=== PATIENT | male | born 1935 | race Caucasian/White ===

== ENCOUNTER 2022-09-09 13:45 | Inpatient (IN) ==
[2022-09-09 14:13] LABS: POC Calcium, Ionized 1.18 (1.16-1.32); POC Creatinine 3.3 (0.6-1.2); POC Potassium 4.9 (3.3-5.1)
--- NOTE | 2022-09-09 14:15 | Emergency Department Note ---
HPI General Chief complaint: Weakness Stated complaint: weakness Time Seen by Provider: 09/09/22 13:49 Source: patient and family Mode of arrival: wheelchair Limitations: no limitations History of Present Illness HPI Narrative: Narrative: Patient presents to the ED with his family with concerns of deterioration over the last month. Is that patient had a stroke several months ago and he was going through PT was doing much better. However on 08/15/2022 patient had a fall. He went to an outside facility for evaluation in their ED and they did a CT and x-rays of his pelvis and they were unremarkable for any acute fractures. However upon returning home patient has not ambulated and has decreased his ambulation to the point where he is no longer walking. They states that it was due to pain that he would feel in his hip every time he would try to walk. Over the last month he has had some ground-level falls where he fell to his buttocks. His last fall was yesterday. Family denies him hitting his head or have any loss of consciousness, fever, chills, extremity weakness, extremity numbness, slurred speech, facial droopiness, low back pain. Patient reports that he does have pain in his hip and in his left knee. He states his left knee is swollen. Patient denies any other alleviating or aggravating factors. Related Data Home Medications Medication Instructions Recorded Confirmed allopurinol 100 mg tablet 100 mg PO QDAY 09/27/16 04/29/22 amlodipine 10 mg tablet 10 mg PO QDAY 09/27/16 04/29/22 aspirin 81 mg tablet 81 mg PO QDAY 09/27/16 04/29/22 levothyroxine 50 mcg tablet 50 mcg PO QDAY 09/27/16 04/29/22 (Synthroid) niacin 250 mg tablet 500 mg PO QDAY 10/28/21 04/29/22 bisacodyl 10 mg rectal suppository 10 mg MA QDAY PRN 04/29/22 04/29/22 (Dulcolax (bisacodyl)) chlorthalidone 25 mg tablet 25 mg PO QDAY 04/29/22 04/29/22 clonidine HCl 0.1 mg tablet 0.1 mg PO QHS PRN 04/29/22 04/29/22 clopidogrel 75 mg tablet 75 mg PO QDAY 12/23/22 12/23/22 docusate sodium 100 mg tablet 100 mg PO QDAY 04/29/22 04/29/22 pantoprazole 40 mg tablet,delayed 40 mg PO QDAY 04/29/22 04/29/22 release polyethylene glycol 3350 17 gram 17 g PO QDAY PRN 04/29/22 04/29/22 oral powder packet (Miralax) sodium bicarbonate 650 mg tablet 650 mg PO BID 04/29/22 04/29/22 sodium zirconium cyclosilicate 10 10 g PO QDAY 04/29/22 04/29/22 gram oral powder packet terazosin 1 mg capsule 1 mg PO BID 04/29/22 04/29/22 Allergies Allergy/AdvReac Type Severity Reaction Status Date / Time NSAIDS (Non-Steroidal Allergy Unknown Unknown Verified 04/29/22 08:46 Anti-Inflamma Oobjtsn-MKY-FfQ Reductase Allergy Unknown Unknown Verified 04/29/22 08:46 Inhibitor [Usmwrgr-Srq-Fgr Reductase Inhibitor] Review of Systems ROS ROS Narrative: Narrative: All systems ED: reviewed and negative except as stated. [facility] Narrative Patient History Narrative: Narrative: Medical/Surgical/Family History All Active Problems (Updated 09/09/22 @ 15:18 by Jose Camarillo DO) Closed subcapital fracture of left femur (Acute) Hyperkalemia (Acute) Chronic kidney disease (CKD) stage G4/A1, severely decreased glomerular filtration rate (GFR) between 15-29 mL/min/1.73 square meter and albuminuria creatinine ratio less than 30 mg/g (Chronic) Metabolic acidosis (Chronic) Anemia in stage 4 chronic kidney disease (Chronic) Secondary hyperparathyroidism of renal origin (Chronic) Obesity (Chronic) Lumbar back pain (Chronic) Duodenal ulcer (Chronic) Anemia (Chronic) Erectile dysfunction (Chronic) Gout (Chronic) Neoplasm of uncertain behavior of skin (Chronic) Squamous cell skin cancer (Chronic) Dermatitis, eczematoid (Chronic) Moderate to severe aortic stenosis (Chronic) Hypertension (Chronic) Hyperlipidemia (Chronic) BPH (benign prostatic hyperplasia) (Chronic) Hypothyroidism (Chronic) Decreased urination (Chronic) Aortic stenosis (Chronic) Medical History (Updated 09/09/22 @ 15:18 by Jose Camarillo DO) Anemia Aortic stenosis BPH (benign prostatic hyperplasia) Decreased urination Dermatitis, eczematoid Duodenal ulcer Erectile dysfunction Gout Hyperlipidemia Hypertension Hypothyroidism Lumbar back pain Moderate to severe aortic stenosis Neoplasm of uncertain behavior of skin Obesity Secondary hyperparathyroidism of renal origin Squamous cell skin cancer Left forearm-excised 2010 Surgical History No pertinent past surgical history Family History Mother Stroke Father Asthma Brother Alcoholism Diabetes Sister Colon cancer Social History Smoking Status: Never smoker Alcohol Intake Frequency: a few times a month Substance Use: does not use Exam Narrative Narrative: Narrative: General Limitations: no limitations General appearance: Absent in distress Head Head: Present atraumatic and normocephalic Eye Eye: Present PERRL and EOMI ENT ENT: Present normal oropharynx and mucous membranes moist Neck Neck: Present normal inspection; Absent tenderness Respiratory Respiratory: Present normal lung sounds bilaterally; Absent respiratory distress Cardiovascular Cardiovascular: Present regular rate and normal rhythm Adbominal Abdominal: Present soft; Absent tenderness Extremities Extremities: Present normal capillary refill Expanded Lower Extremity Hip/Pelvis: Present tenderness, ecchymosis, internal rotation and shortening Upper leg: Absent tenderness Knee: Present tenderness and swelling Neurological Neurological: Present alert Psychiatric Psychiatric: Present normal affect and normal mood Skin Skin: Present warm (WNL) and intact Course Course Course Narrative: Physical exam showed that patient's left lower extremity was shortened and and rotated. CT of the pelvis was obtained with images reviewed myself which revealed a subcapital femoral fracture with some angulation. Labs are relatively unremarkable. Patient's renal function is at baseline. White cell count within normal limits. Patient was given some IV fluids. He does have some urinary retention as he had greater than 500 mL of urine. Langley catheter was placed. Patient expressed desire to have his fracture surgically corrected if possible. Case was discussed with orthopedic surgeon who recommend the patient be admitted to the hospitalist service for surgical correction of his left hip. Case was discussed with hospitalist who has agreed to admit the patient. Reevaluation(s) Reevaluation #1: Patient remains hemodynamically stable. No new complaints at this time Time: 14:51 Consultations Consultation #1: Case discussed with on-call orthopedic surgeon, Dr. Bonner, who recommends surgical correction of patient's subcapital fracture. He requested patient be admitted to the hospitalist service due to patient's comorbid conditions. He also requested patient Plavix be held Time: 15:15 Consultation #2: Case discussed with hospitalist who has agreed to admit the patient. Time: 15:40 Vital Signs Vital signs: Vital Signs Temperature 96.7 F L 09/09/22 13:46 Pulse Rate 78 09/09/22 13:46 Respiratory Rate 17 09/09/22 13:46 Blood Pressure 152/53 09/09/22 13:46 Pulse Oximetry (%) 98 09/09/22 13:46 Oxygen Delivery Method Room Air 09/09/22 13:46 Temperature 96.7 F L 09/09/22 13:46 Pulse Rate 79 09/09/22 15:25 Respiratory Rate 17 09/09/22 13:46 Blood Pressure 177/62 09/09/22 15:25 Pulse Oximetry (%) 99 09/09/22 15:25 Oxygen Delivery Method Room Air 09/09/22 13:46 MDM MDM Narrative Medical decision making narrative: Narrative: Differential Diagnosis Differential Diagnosis: Hip fracture, Medical Records Medical records reviewed: Yes I reviewed the patient's medical records. Lab Data Lab results reviewed: Yes I reviewed the patient's lab results. 09/09/22 14:10 Labs: Lab Results 09/09/22 09/09/22 Range/Units 14:08 14:10 WBC 7.5 (4.5-11.0) K/mcL RBC 3.61 L (4.63-6.08) M/mcL Hgb 10.9 L (13.7-17.5) g/dL Hct 34.9 L (40.1-51.0) % POC Hct 32.0 L (41-55) MCV 96.7 (80.0-100.0) fL MCH 30.2 (26.0-34.0) pg MCHC 31.2 (31.0-36.0) g/dL RDW 14.5 (11.5-14.5) % Plt Count 281 (140-440) K/mcL MPV 9.6 (8.8-12.5) fL Immature Gran % (Auto) 4.7 H (0.0-0.5) % Neut % (Auto) 72.0 (38.0-78.0) % Lymph % (Auto) 11.9 L (15.5-49.0) % [place] % (Auto) 9.1 (1.0-12.0) % Eos % (Auto) 1.5 (0.0-7.0) % Baso % (Auto) 0.8 (0.0-2.0) % Lymph # (Auto) 0.89 L (1.50-4.80) K/mcL [place] # (Auto) 0.68 (0.10-0.90) K/mcL Eos # (Auto) 0.11 (0.00-0.70) K/mcL Baso # (Auto) 0.06 (0.00-0.30) K/mcL Immature Gran # 0.35 H (0.00-0.05) K/mcl Absolute Neutrophils 5.36 (1.80-8.00) K/mcL POC Sodium 143 (133-145) POC Potassium 4.9 (3.3-5.1) POC Chloride 114 H (96-108) POC Total CO2 18.0 L (22-30) POC BUN 52 H (6-20) POC Creatinine 3.3 H (0.6-1.2) POC Glucose 129 H (70-105) POC WB Ioniz Calcium 1.18 (1.16-1.32) Core Measures AMI Core Measures Followed: Yes Discharge Plan Patient/Caregiver Discharge Instructions Pt seen by [employer]/PA only: No Clinical Impression: Closed subcapital fracture of left femur Qualifiers: Encounter type: initial encounter Qualified Code(s): S72.012A - Unspecified intracapsular fracture of left femur, initial encounter for closed fracture Patient Disposition: Xfer As Outpt/Obs ([facility]) Condition: Fair Follow up with: Ludwin Maldonado MD [Primary Care Provider] - Prescriptions: No Action allopurinol 100 mg tablet 100 mg PO QDAY levothyroxine [Synthroid] 50 mcg tablet 50 mcg PO QDAY amlodipine 10 mg tablet 10 mg PO QDAY aspirin 81 mg tablet 81 mg PO QDAY niacin 250 mg tablet 500 mg PO QDAY terazosin 1 mg capsule 1 mg PO BID sodium bicarbonate 650 mg tablet 650 mg PO BID clonidine HCl 0.1 mg tablet 0.1 mg PO QHS PRN docusate sodium 100 mg tablet 100 mg PO QDAY sodium zirconium cyclosilicate 10 gram powder in packet 10 g PO QDAY chlorthalidone 25 mg tablet 25 mg PO QDAY pantoprazole 40 mg tablet,delayed release (DR/EC) 40 mg PO QDAY clopidogrel 75 mg tablet 75 mg PO QDAY polyethylene glycol 3350 [Miralax] 17 gram powder in packet 17 g PO QDAY PRN bisacodyl [Dulcolax (bisacodyl)] 10 mg suppository 10 mg MA QDAY PRN
[2022-09-09] MEDS ORDERED: 0.9 % SODIUM CHLORIDE 1,000 ML IV ONE (14:18)
[2022-09-09] MEDS ORDERED: 0.9 % SODIUM CHLORIDE 500 ML IV ONE (14:18)
[2022-09-09] MEDS ORDERED: LIDOCAINE 2% URO-JET 10 ML JEL.PF.APP UR ONE (14:22)
--- NOTE | 2022-09-09 15:08 | Cat Scan Report ---
History: Fell, left hip pain TECHNIQUE: The pelvis was imaged without contrast in axial plane at 2.5 mm intervals. Sagittal and coronal reformats were created. The radiation exposure was limited using dose reduction technology. FINDINGS: There is a subacute subcapital fracture of the left femoral neck. There is angulation and impaction. The shaft is retracted proximally. The femoral head is rotated within the acetabulum but is intact. No callus has formed. There is mild resorption of bone along the superior aspect of the fracture line. No pelvic fracture is present. The right hip is normal. Bowel pattern is normal. There is a Langley catheter in the bladder. Severe atherosclerotic disease is present in the distal aorta. 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 No retroperitoneal hemorrhage is present. Comparison with the prior CT done on 08/15/22 shows the fracture of the hip has developed since the time of the prior CT. The hip was normal at that time. IMPRESSION: Moderate deformity due to a subcapital fracture of the left femoral neck Dr. Camarillo was called with the report Interpreted and Authenticated by: Albert Canales 09/09/22
[2022-09-09 15:24] LABS: Basophils # (Auto) 0.06 K/mcL (0.00-0.30); Basophils % (Auto) 0.8 % (0.0-2.0); Eosinophils # (Auto) 0.11 K/mcL (0.00-0.70); Eosinophils % (Auto) 1.5 % (0.0-7.0); Hematocrit 34.9 % (40.1-51.0); Hemoglobin 10.9 g/dL (13.7-17.5); Lymphocytes # (Auto) 0.89 K/mcL (1.50-4.80); Lymphocytes % (Auto) 11.9 % (15.5-49.0); Mean Cell Volume 96.7 fL (80.0-100.0); Mean Corpuscular HGB Conc 31.2 g/dL (31.0-36.0); Mean Platelet Volume 9.6 fL (8.8-12.5); Monocytes # (Auto) 0.68 K/mcL (0.10-0.90); Monocytes % (Auto) 9.1 % (1.0-12.0); Platelet Count 281 K/mcL (140-440); RBC 3.61 M/mcL (4.63-6.08); Red Cell Distribution Width 14.5 % (11.5-14.5); WBC 7.5 K/mcL (4.5-11.0)
--- NOTE | 2022-09-09 16:30 | Internal Med History&Physical ---
HPI History of Present Illness Patient information: Note initiated : 09/09/22 at 4:28 pm Service Date, if different from initiated Date: [] Patient: Mina Schmidt 87 y/o M admitted on for weakness. Chief Complaint: [] History of present illness: Mr. Schmidt is a 87 year old male with a history of hypertension, hyperlipidemia, aortic stenosis status post TAVR, chronic kidney disease stage IV, stroke in 2021 and recurrent falls who presented to the emergency department with worsening left hip pain. History was taken from the patient and his daughter and grandson in the ED. They reported that the patient had a fall on [place] and was taken to an outside emergency department. The patient reportedly had an x-ray and CT scan of his hip and that did not show any acute fractures. They reported that the patient had elevated potassium therefore was admitted for short period of time before discharge. The patient continued to have left hip pain and multiple falls. They reported that he was again taken to the emergency department and had additional imaging which reportedly did not show any acute fractures. The patient was then brought to the [facility] for further evaluation and was found to have a left femoral neck fracture. Orthopedic surgery evaluated the CT scan and felt that the patient would benefit from surgical correction. The patient would like to proceed with surgical correction. Hospital medicine was consulted for admission. We did discuss goals of care as well as CODE STATUS prior to admission. The patient says that he wants to walk again, hopefully return home at some point. He says that he wishes his CODE STATUS to be DNR. We discussed the possibility of complications from surgery including worsening of his renal function, pain, confusion, urinary retention and the risk of if the hospitalization does not go well. The patient and family understand the risks and wished to proceed with surgery. Review of systems Constitutional: no fever, fatigue, or weight loss Eyes: no vision changes or pain Cardiovascular: no chest pain, no palpitations Respiratory: no cough or dyspnea Gastrointestinal: no abdominal pain, no nausea, vomiting, or diarrhea Genitourinary: no dysuria or difficulty voiding Musculoskeletal: Left hip and left knee pain. Integumentary: no skin lesion or wound Neurological: no focal weakness or numbness Psychiatric: no anxiety or depression Physical exam Head: Atraumatic, normal inspection. Eyes: normal appearance, no scleral icterus. Neck: full ROM Respiratory: no respiratory distress. Cardiovascular: normal rate and rhythm, S1, S2, systolic murmur present. GI/Abdominal: soft, nontender, no guarding. : Indwelling Up catheter Extremities: Left hip tenderness to palpation. Neurological: CN II-XII intact, intact motor, intact sensation. Psychiatric: normal mood. Skin: warm, normal color PFSH PFSH All Active Problems (Updated 09/09/22 @ 15:18 by Jose Camarillo DO) Closed subcapital fracture of left femur (Acute) Hyperkalemia (Acute) Chronic kidney disease (CKD) stage G4/A1, severely decreased glomerular filtration rate (GFR) between 15-29 mL/min/1.73 square meter and albuminuria creatinine ratio less than 30 mg/g (Chronic) Metabolic acidosis (Chronic) Anemia in stage 4 chronic kidney disease (Chronic) Secondary hyperparathyroidism of renal origin (Chronic) Obesity (Chronic) Lumbar back pain (Chronic) Duodenal ulcer (Chronic) Anemia (Chronic) Erectile dysfunction (Chronic) Gout (Chronic) Neoplasm of uncertain behavior of skin (Chronic) Squamous cell skin cancer (Chronic) Dermatitis, eczematoid (Chronic) Moderate to severe aortic stenosis (Chronic) Hypertension (Chronic) Hyperlipidemia (Chronic) BPH (benign prostatic hyperplasia) (Chronic) Hypothyroidism (Chronic) Decreased urination (Chronic) Aortic stenosis (Chronic) Medical History (Updated 09/09/22 @ 15:18 by Jose Camarillo DO) Anemia Aortic stenosis BPH (benign prostatic hyperplasia) Decreased urination Dermatitis, eczematoid Duodenal ulcer Erectile dysfunction Gout Hyperlipidemia Hypertension Hypothyroidism Lumbar back pain Moderate to severe aortic stenosis Neoplasm of uncertain behavior of skin Obesity Secondary hyperparathyroidism of renal origin Squamous cell skin cancer Left forearm-excised 2010 Surgical History No pertinent past surgical history Family History Mother Stroke Father Asthma Brother Alcoholism Diabetes Sister Colon cancer Social History (Updated 10/21/19 @ 13:43 by Prasad Harris MD) marital status: occupational status: retired physical activity: walking and other details: Active frequency: daily smoking status: Never smoker alcohol intake frequency: a few times a month substance use type: does not use seatbelt use: always MEDS/ALLERGIES Home Medications and Allergies Home Medications Medication Instructions Recorded Confirmed Type allopurinol 100 mg tablet 100 mg PO QDAY 09/27/16 04/29/22 History amlodipine 10 mg tablet 10 mg PO QDAY 09/27/16 04/29/22 History aspirin 81 mg tablet 81 mg PO QDAY 09/27/16 04/29/22 History levothyroxine 50 mcg tablet 50 mcg PO QDAY 09/27/16 04/29/22 History (Synthroid) niacin 250 mg tablet 500 mg PO QDAY 10/28/21 04/29/22 History bisacodyl 10 mg rectal suppository [address] QDAY PRN 04/29/22 04/29/22 History (Dulcolax (bisacodyl)) chlorthalidone 25 mg tablet 25 mg PO QDAY 04/29/22 04/29/22 History clonidine HCl 0.1 mg tablet 0.1 mg PO QHS PRN 04/29/22 04/29/22 History clopidogrel 75 mg tablet 75 mg PO QDAY 04/29/22 04/29/22 History docusate sodium 100 mg tablet 100 mg PO QDAY 04/29/22 04/29/22 History pantoprazole 40 mg tablet,delayed 40 mg PO QDAY 04/29/22 04/29/22 History release polyethylene glycol 3350 17 gram 17 g PO QDAY PRN 04/29/22 04/29/22 History oral powder packet (Miralax) sodium bicarbonate 650 mg tablet 650 mg PO BID 04/29/22 04/29/22 History sodium zirconium cyclosilicate 10 10 g PO QDAY 04/29/22 04/29/22 History gram oral powder packet terazosin 1 mg capsule 1 mg PO BID 04/29/22 04/29/22 History Allergies Allergy/AdvReac Type Severity Reaction Status Date / Time NSAIDS (Non-Steroidal Allergy Unknown Unknown Verified 04/29/22 08:46 Anti-Inflamma Noctmzf-WRC-SoK Reductase Allergy Unknown Unknown Verified 04/29/22 08:46 Inhibitor [Eblbzkx-Ppz-Btz Reductase Inhibitor] EXAM Constitutional Vitals: Temp Pulse Resp BP Pulse Ox O2 Del Method 96.7 F L 80 17 172/64 98 Room Air 09/09/22 13:46 09/09/22 15:49 09/09/22 13:46 09/09/22 15:49 09/09/22 15:49 09/09/22 13:46 DATA Data Completed and Pending Labs: Labs from last 24 hours 09/09/22 09/09/22 14:10 14:08 WBC 7.5 RBC 3.61 L Hgb 10.9 L Hct 34.9 L POC Hct 32.0 L MCV 96.7 MCH 30.2 MCHC 31.2 RDW 14.5 Plt Count 281 MPV 9.6 Immature Gran % (Auto) 4.7 H Neut % (Auto) 72.0 Lymph % (Auto) 11.9 L [place] % (Auto) 9.1 Eos % (Auto) 1.5 Baso % (Auto) 0.8 Lymph # (Auto) 0.89 L [place] # (Auto) 0.68 Eos # (Auto) 0.11 Baso # (Auto) 0.06 Immature Gran # 0.35 H Absolute Neutrophils 5.36 POC Sodium 143 POC Potassium 4.9 POC Chloride 114 H POC Total CO2 18.0 L POC BUN 52 H POC Creatinine 3.3 H POC Glucose 129 H POC WB Ioniz Calcium 1.18 A/P Narrative A/P Narrative: Assessment: 87-year-old male with a history of hypertension, hyperlipidemia, aortic stenosis status post TAVR, chronic kidney disease stage IV, stroke in 2021, gout, hypothyroidism admitted for a left femoral neck fracture. #Left femoral neck fracture #CKD stage IV complicated by metabolic acidosis #Urinary retention requiring up catheter #Recurrent falls #Hypertension #Hyperlipidemia #History of stroke 2021 #Aortic stenosis status post TAVR Plan: -Schedule Ofirmev IV Q8 hrs, low dose Dilaudid IV prn. -Monitor renal function, hemoglobin after surgery. -Orthopedic surgery consult. -Home medication reconciliation. -Regular diet, n.p.o. after midnight. -PT consult. -Delirium bundle. -DVT prophylaxis: Per orthopedic surgery preference. -CODE STATUS: DNR/DNI Time Spent With Patient Time: Total time spent is greater than 50% in coordination of care (as documented) at patient's floor/unit and/or counseling patient:
[2022-09-09] MEDS ORDERED: HYDROmorphone 0.5 MG/0.5 ML SYRINGE IV PRN (18:48)
[2022-09-09] MEDS ORDERED: BISACODYL 10 MG SUPP.RECT PR PRN (18:48)
[2022-09-09] MEDS ORDERED: ONDANSETRON 4 MG/2 ML VIAL IV PRN (18:48)
[2022-09-09] MEDS: SENNOSIDES 1 TABLET PO SCH (20:06)
[2022-09-09] MEDS: 0.9 % SODIUM CHLORIDE 10 ML SYRINGE IV SCH (20:07)
[2022-09-09] MEDS: ACETAMINOPHEN 1,000 MG/100 ML BAG IV SCH (20:08)
--- NOTE | 2022-09-09 20:24 | Consultation ---
DATE OF CONSULTATION: 09/09/2022 HISTORY OF PRESENT ILLNESS: The patient being an elderly 87-year-old male has significant complaint of hip pain. This started I guess a week ago or two. The patient was seen in the hospital image without any sign of a fracture. He was unable to bear weight and has worsened over the last week. He returns today with further imaging x-rays. The CT scan demonstrates a femoral neck fracture, displaced. He is unable to bear weight and with his new changes in his symptoms I have been consulted to see if this is surgical. Patient is on blood thinners or Plavix secondary to aortic stenosis. He was initially seen in the emergency room after a fall on 08/15/2022 more that is when his fall was. MEDICATIONS: His other medications include: 1. Allopurinol. 2. Amlodipine. 3. Aspirin. 4. Levothyroxine. 5. Niacin. 6. He is also on terazosin 1 gram. 7. Stool softener, docusate sodium. 8. Clonidine. 9. He has Dulcolax. 10. Plavix 75 mg tablet every day. ALLERGIES: LISTED ANTI-INFLAMMATORIES, STATINS. REVIEW OF SYSTEMS: Negative for chest pain, shortness of breath or loss of consciousness. PAST SOCIAL HISTORY AND FAMILY HISTORY: He is living at a facility with assistance. Does ambulate. Has not been able to ambulate recently, but is an ambulatory person. Other health problems in the past is kidney disease, metabolic acidosis, anemia, obesity, lumbar back pain, which is chronic, anemia, erectile dysfunction, gout, dermatitis, hypertension, hyperlipidemia, hypothyroidism, chronic decrease in urination, aortic stenosis. He also had squamous cell skin cancer, left forearm. SURGICAL HISTORY: I see no extremity surgery. SOCIAL HISTORY: He has never smoked. He drinks occasionally and is not a substance abuser. PHYSICAL EXAMINATION: GENERAL: Very pleasant elderly male. General appearance without distress without shortness of breath, but in pain. HEENT: Head normocephalic, atraumatic. Eyes: Extraocular movements intact. NECK: Supple, nontender. RESPIRATORY: Normal lung sounds bilaterally. CARDIOVASCULAR: Regular rate. ABDOMEN: Obese. EXTREMITIES: Unable to move the hip internally or externally. Extremity with normal capillary refill. He does have shortening on the left lower extremity when compared to the right. He is unable to stand and bear weight and he does move his toes without difficulty. The patient's CT scan that I have reviewed today does demonstrate obvious displacement of the femoral neck fracture. DIAGNOSIS: Surgical neck fracture, displaced at this point, longstanding fracture. I have recommended a hemiarthroplasty given the length of its displacement and symptoms. This would be a cementless component as his bone quality is excellent. Risks and benefits were explained. He agrees to have surgery. We will stop his Plavix today, make him n.p.o., surgery tomorrow if the bleeding time is reasonable. RBH:chelly Job ID: [id number] Doc ID: [id number] Stefano Painter MD
[2022-09-10] MEDS: ACETAMINOPHEN 1,000 MG/100 ML BAG IV SCH (04:12)
[2022-09-10] MEDS: 0.9 % SODIUM CHLORIDE 10 ML SYRINGE IV SCH ×6 (04:13→21:16)
[2022-09-10 06:11] LABS: ALT/SGPT 10 U/L (<40); AST/SGOT 12 U/L (<40); Albumin 3.4 gm/dL (3.2-5.2); Albumin/Globulin Ratio 1.4 (1.0-2.3); Alkaline Phosphatase 81 U/L (39-117); Bilirubin,Direct < 0.2 mg/dL (0-0.3); Bilirubin,Total 0.2 mg/dL (0.1-1.0); Blood Urea Nitrogen 53 mg/dL (8-23); Calcium 8.9 mg/dL (8.6-10.4); Carbon Dioxide 17 mmol/L (22-30); Chloride 113 mmol/L (96-108); Globulin 2.5 gm/dL (2.2-3.7); Glomerular Filtration Rate 24; Glucose 106 mg/dL (70-105); Lactate Dehydrogenase 251 U/L (135-225); Phosphorous 4.1 mg/dL (2.5-4.5); Triglycerides 112 mg/dL (<150); Uric Acid 5.6 mg/dL (2.5-8.0)
[2022-09-10] MEDS ORDERED: IPRATROPIUM/ALBUTEROL 3 ML AMPUL.NEB NEB PRN ×2 (07:00→08:45)
[2022-09-10] MEDS ORDERED: SCOPOLAMINE 1 PATCH PATCH TOPICAL PRN (07:00)
[2022-09-10] MEDS ORDERED: ceFAZolin 2 GM in DEXTROSE 5% IN WATER 50 ML IV SCH (07:45)
[2022-09-10] MEDS: SENNOSIDES 1 TABLET PO SCH ×2 (07:50→21:14)
[2022-09-10] MEDS ORDERED: POLYETHYLENE GLYCOL 3350 17 GM PACKET PO PRN ×2 (07:53→09:18)
[2022-09-10] MEDS ORDERED: ONDANSETRON 4 MG/2 ML VIAL ONE (08:10)
[2022-09-10] MEDS ORDERED: KETAMINE 50 MG/ML Syringe (ANEST) IV ONE (08:10)
[2022-09-10] MEDS ORDERED: MAGNESIUM SULFATE 2 GM/50 ML BAG IV ONE (08:10)
[2022-09-10] MEDS ORDERED: DEXAMETHASONE 10 MG/ML VIAL ONE (08:10)
[2022-09-10] MEDS ORDERED: LIDOCAINE HCL/PF 100 MG/5 ML SYRINGE IV ONE (08:10)
[2022-09-10] MEDS ORDERED: ROPIVACAINE HCL/PF 20 ML VIAL IJ ONE (08:10)
[2022-09-10] MEDS ORDERED: PROPOFOL 200 MG/20 ML VIAL IV ONE (08:10)
[2022-09-10] MEDS ORDERED: MEPERIDINE 25 MG/ML VIAL IV PRN (08:45)
[2022-09-10] MEDS ORDERED: PROMETHAZINE 25 MG/ML VIAL IV PRN (08:45)
[2022-09-10] MEDS ORDERED: LACTATED RINGERS 1,000 ML IV SCH (08:45)
[2022-09-10] MEDS ORDERED: NALOXONE HCL 0.4 MG/ML VIAL IV PRN (08:45)
[2022-09-10] MEDS ORDERED: METHOCARBAMOL 1,000 MG/10 ML VIAL IV PRN (08:45)
[2022-09-10] MEDS ORDERED: LACTATED RINGERS 250 ML IV PRN (08:45)
[2022-09-10] MEDS ORDERED: ONDANSETRON 4 MG/2 ML VIAL IV PRN ×3 (08:45→09:18)
[2022-09-10] MEDS ORDERED: fentaNYL 100 MCG/2 ML VIAL IV PRN (08:45)
--- NOTE | 2022-09-10 09:15 | Brief Operative Note ---
Brief Operative Note Date of procedure: 09/10/22 Pre-op diagnosis: left hip femoral neck fx Post-op diagnosis: same Procedure: Left hip hemiarthroplasty Grafts/Implants: Yes Anesthesia: GETA Findings: severe fx Complications: none Surgeon: Stefano Painter Metal Sorter: Daniel Baum Estimated blood loss (cc): 50 Tourniquet Time (Minutes): 0 Specimens Removed/Pathology: none sent Condition: stable Disposition: PACU
--- NOTE | 2022-09-10 09:17 | Discharge Plan ---
Discharge Instructions - [facility] Patient Instructions Total Hip Protocol: Follow activity instructions as provided by Physical Therapy. Dressing Care: May shower in 3 days Discharge Plan Patient/Caregiver Discharge Instructions Activity: ambulate only with your walker and as per physical therapy Diet: Regular Diet Prescriptions: New docusate sodium 100 mg capsule 100 mg PO BID Qty: 60 0RF hydrocodone-acetaminophen 5-325 mg tablet 1 - 2 tab PO Q4H PRN (Reason: Pain) Qty: 30 0RF No Action allopurinol 100 mg tablet 100 mg PO QDAY levothyroxine [Synthroid] 50 mcg tablet 50 mcg PO QDAY amlodipine 10 mg tablet 10 mg PO QDAY aspirin 81 mg tablet 81 mg PO QDAY niacin 250 mg tablet 500 mg PO QDAY terazosin 1 mg capsule 1 mg PO BID sodium bicarbonate 650 mg tablet 650 mg PO BID clonidine HCl 0.1 mg tablet 0.1 mg PO QHS PRN (Reason: antihypertensive) docusate sodium 100 mg tablet 100 mg PO QDAY sodium zirconium cyclosilicate 10 gram powder in packet 10 g PO QDAY chlorthalidone 25 mg tablet 25 mg PO QDAY pantoprazole 40 mg tablet,delayed release (DR/EC) 40 mg PO QDAY clopidogrel 75 mg tablet 75 mg PO QDAY polyethylene glycol 3350 [Miralax] 17 gram powder in packet 17 g PO QDAY PRN (Reason: Constipation) bisacodyl [Dulcolax (bisacodyl)] 10 mg suppository 10 mg MO QDAY PRN (Reason: Constipation) Other Ambulatory Orders: Physical Therapy DC - [facility] (Routine) Location: None Selected Ordered By: Daniel Baum Toilet Riser Discharge Order (ONCE) Location: None Selected Ordered By: Daniel Baum Walker (ONCE) Location: None Selected Ordered By: Daniel Baum Follow Up Plan Follow up with: Ludwin Maldonado MD [Primary Care Provider] - Daniel Baum PAJoeC [Physician Wharf Worker] - Patient Disposition: Xfer SNF Prognosis: Fair Rehab Potential: Fair I certify that the patient requires SNF services: Yes Overall status at discharge: patient is not back to baseline Discharge Orders: Discharge Order (Routine); Ordered 09/12/22 Ordered By: Daniel Baum
[2022-09-10] MEDS ORDERED: HYDROmorphone 1 MG/ML SYRINGE IV PRN (09:18)
[2022-09-10] MEDS ORDERED: HYDROCODONE/APAP 7.5/325MG TABLET PO PRN (09:18)
[2022-09-10] MEDS ORDERED: TRANEXAMIC ACID 1,000 MG/10 ML VIAL IV SCH (09:18)
[2022-09-10] MEDS ORDERED: BENZOCAINE/MENTHOL 1 LOZENGE PO PRN (09:18)
[2022-09-10] MEDS ORDERED: FLEETS ADULT ENEMA PR PRN (09:18)
[2022-09-10] MEDS ORDERED: MAGNESIUM HYDROXIDE 30 ML ORAL.SUSP PO PRN (09:18)
[2022-09-10] MEDS ORDERED: BISACODYL 10 MG SUPP.RECT PR PRN (09:18)
[2022-09-10] MEDS ORDERED: ACETAMINOPHEN 325 MG TABLET PO PRN (09:18)
[2022-09-10] MEDS ORDERED: 0.45 % SODIUM CHLORIDE 1,000 ML IV SCH (09:30)
[2022-09-10] MEDS ORDERED: hydrALAZINE 20 MG/ML VIAL IV ONE (09:45)
[2022-09-10] MEDS: PANTOPRAZOLE 40 MG TABLET PO SCH (11:42)
[2022-09-10] MEDS: amLODIPine 10 MG TABLET PO SCH (11:42)
[2022-09-10] MEDS: TERAZOSIN 1 MG CAPSULE PO SCH ×2 (11:42→21:14)
[2022-09-10] MEDS: LEVOTHYROXINE 50 MCG TABLET PO SCH (11:42)
[2022-09-10] MEDS: SODIUM BICARBONATE 650 MG TABLET PO SCH ×2 (11:43→21:14)
[2022-09-10] MEDS: ALLOPURINOL 100 MG TABLET PO SCH (11:43)
[2022-09-10] MEDS: SODIUM ZIRCONIUM CYCLOSILICATE PO SCH (11:43)
--- NOTE | 2022-09-10 15:17 | XRay Report ---
HISTORY: Postop repair of left hip fracture FINDINGS: There is a well-positioned left hip prosthesis. Femoral head and neck have been replaced. No new fracture is developed. There is underlying osteopenia. IMPRESSION: Well-positioned left hip prosthesis Interpreted and Authenticated by: Albert Canales 09/10/22
--- NOTE | 2022-09-10 17:07 | Internal Med Progress Note ---
SUBJECTIVE Subjective Patient information: Note initiated : 09/10/22 at 5:04 pm Service Date, if different from initiated Date: [] Patient: Mina Schmidt 87 y/o M admitted on 09/09/22 for weakness. Chief Complaint: [] Interval history: Mr. Schmidt is a 87 year old male with a history of hypertension, hyperlipidemia, aortic stenosis status post TAVR, chronic kidney disease stage IV, stroke in 2021 and recurrent falls who presented to the emergency department with worsening left hip pain. History was taken from the patient and his daughter and grandson in the ED. They reported that the patient had a fall on [place] and was taken to an outside emergency department. The patient reportedly had an x-ray and CT scan of his hip and that did not show any acute fractures. They reported that the patient had elevated potassium therefore was admitted for short period of time before discharge. The patient continued to have left hip pain and multiple falls. They reported that he was again taken to the emergency department and had additional imaging which reportedly did not show any acute fractures. The patient was then brought to the [facility] for further evaluation and was found to have a left femoral neck fracture. Orthopedic surgery evaluated the CT scan and felt that the patient would benefit from surgical correction. The patient would like to proceed with surgical correction. Hospital medicine was consulted for admission. We did discuss goals of care as well as CODE STATUS prior to admission. The patient says that he wants to walk again, hopefully return home at some point. He says that he wishes his CODE STATUS to be DNR. We discussed the possibility of complications from surgery including worsening of his renal function, pain, confusion, urinary retention and the risk of if the hospitalization does not go well. The patient and family understand the risks and wished to proceed with surgery. 5/6 No significant events overnight, the patient underwent a left hemiarthroplasty today. Pain control satisfactory, continue scheduled IV Tylenol for now and minimize opioids. Continues with indwelling Up catheter, likely attempt removal tomorrow. PT consulted. Physical exam Head: Atraumatic, normal inspection. Eyes: normal appearance, no scleral icterus. Neck: full ROM Respiratory: no respiratory distress. Cardiovascular: normal rate and rhythm, S1, S2 GI/Abdominal: soft, nontender, no guarding. : Indwelling Up catheter Extremities: Left hip surgical incision covered with clean bandage. Neurological: CN II-XII intact, intact motor, intact sensation. Psychiatric: normal mood. Skin: warm, normal color Constitutional Vitals: Vital Signs Temp Pulse Resp BP Pulse Ox O2 Del Method O2 Flow Rate 97.7 F 84 16 154/56 97 Room Air 0 09/10/22 10:16 09/10/22 14:00 09/10/22 12:00 09/10/22 14:00 09/10/22 14:00 09/10/22 14:00 09/10/22 10:17 Period Temp Pulse Resp BP Sys/Butterfield Pulse Ox O2 Del Method O2 Flow Rate Last 24 Hr 96.7 F-98.2 F 63-84 10-18 100-204/39-78 95-100 Oxymask-Room Air 0-6 Intake and Output 09/10/22 09/10/22 09/10/22 03:59 11:59 19:59 Intake Total 580 1120 Output Total 1150 Balance 580 -30 Weight 86.183 kg Intake & Output: Intake & Output 09/10/22 09/10/22 09/10/22 03:59 11:59 19:59 Intake Total 580 1120 Output Total 1150 Balance 580 -30 Weight 86.183 kg Intake: IV 100 170 Lactated Ringers 1,000 ml @ 20 20 mls/hr IV .Q24H [facility] Rx#: [id number] Ancef 2 gm In Dextrose 5% in 50 Water 50 ml @ 100 mls/hr IV PREOP [facility] Rx#:[id number] Oral 480 IV - Manual Only 950 Output: Urine Catheter Amount 1100 Estimated Blood Loss 50 Other: Meal egg salad sandwich Percent of Meal Consumed 100% Feeding Ability Independent Urine Appearance Clear Urine Color Yellow Urine Odor Normal OBJ DATA Labs 09/09/22 14:10 09/10/22 04:55 Labs: Abnormal Lab Results 09/10/22 09/09/22 09/09/22 04:55 14:10 14:08 RBC 3.61 L Hgb 10.9 L Hct 34.9 L POC Hct 32.0 L Immature Gran % (Auto) 4.7 H Lymph % (Auto) 11.9 L Lymph # (Auto) 0.89 L Immature Gran # 0.35 H POC Chloride 114 H Chloride 113 H Carbon Dioxide 17 L POC Total CO2 18.0 L POC BUN 52 H BUN 53 H Creatinine 2.3 H POC Creatinine 3.3 H Glucose 106 H POC Glucose 129 H Lactate Dehydrogenase 251 H Meds: Medications Acetaminophen (Acetaminophen 500 Mg Tablet) 1,000 mg PO Q8H [facility]; Protocol Allopurinol (Allopurinol 100 Mg Tablet) 100 mg PO QDAY [facility] Last Admin: 09/10/22 11:43 Dose: Not Given Amlodipine Besylate (Amlodipine 10 Mg Tablet) 10 mg PO QDAY [facility] Last Admin: 09/10/22 11:42 Dose: Not Given Aspirin (Aspirin 81 Mg Tab.Chew) 81 mg CHEWED BID [facility] Bisacodyl (Bisacodyl 10 Mg Supp.Rect) 10 mg WV Q2-3DAYS PRN PRN Reason: Constipation Cefazolin Sodium (Cefazolin 1 Gm Vial) 2 gm IV Q8H [facility]; Protocol Stop: 09/11/22 00:01 Docusate Sodium (Docusate Sodium 100 Mg Capsule) 100 mg PO BID [facility] Hydromorphone HCl (Hydromorphone 1 Mg/Ml Syringe) 0.2 mg IV Q2HP PRN; Protocol PRN Reason: Per Pain Protocol Sodium Chloride (Sodium Chloride 0.45%) 1,000 mls @ 100 mls/hr IV .Q10H [facility] Last Admin: 09/10/22 11:38 Dose: 100 mls/hr Levothyroxine Sodium (Levothyroxine 50 Mcg Tablet) 50 mcg PO ACB [facility] Last Admin: 09/10/22 11:42 Dose: Not Given Magnesium Hydroxide (Magnesium Hydroxide 30 Ml Oral.Susp) 30 ml PO BIDP PRN PRN Reason: Constipation Melatonin (Melatonin 3 Mg Tablet) 3 mg PO HSP PRN PRN Reason: Insomnia Ondansetron HCl (Ondansetron 4 Mg/2 Ml Vial) 4 mg IV Q4HP PRN; Protocol PRN Reason: Nausea And Vomiting Oxycodone HCl (Oxycodone Ir 5 Mg Tablet) 5 mg PO Q6HP PRN; Protocol PRN Reason: Per Pain Protocol Pantoprazole Sodium (Pantoprazole 40 Mg Tablet) 40 mg PO ACB [facility] Last Admin: 09/10/22 11:42 Dose: Not Given Niacin 250 Mg Tablet 1 dose PO DAILY [facility] Last Admin: 09/10/22 11:43 Dose: Not Given Sodium Zirconium Cyclosilicate 10 Gram Powder In Packet 1 dose PO DAILY [facility] Last Admin: 09/10/22 11:43 Dose: Not Given Polyethylene Glycol (Polyethylene Glycol 3350 17 Gm Packet) 17 gm PO DAILYP PRN PRN Reason: Constipation Senna (Sennosides 1 Tablet) 2 tab PO BID [facility] Last Admin: 09/10/22 07:50 Dose: Not Given Sodium Bicarbonate (Sodium Bicarbonate 650 Mg Tablet) 650 mg PO BID [facility] Last Admin: 09/10/22 11:43 Dose: Not Given Sodium Biphosphate/Sodium Phosphate (Fleets Adult Enema) 1 dose WV Q3-4DAYS PRN PRN Reason: Constipation Sodium Chloride (0.9 % Sodium Chloride 10 Ml Syringe) 10 ml IV Q8 [facility] Last Admin: 09/10/22 05:47 Dose: 10 ml Sodium Chloride (0.9 % Sodium Chloride 10 Ml Syringe) 10 ml IV Q8 [facility] Terazosin HCl (Terazosin 1 Mg Capsule) 1 mg PO BID [facility] Last Admin: 09/10/22 11:42 Dose: Not Given Throat Lozenges (Benzocaine/Menthol 1 Lozenge) 1 lozenge PO PRN PRN PRN Reason: Sore Throat A/P Narrative A/P Narrative: Assessment: 87-year-old male with a history of hypertension, hyperlipidemia, aortic stenosis status post TAVR, chronic kidney disease stage IV, stroke in 2021, gout, hypothyroidism admitted for a left femoral neck fracture. #Left femoral neck fracture status post ORIF 09/10/2022 #CKD stage IV complicated by metabolic acidosis, stable #Urinary retention requiring up catheter #Recurrent falls #Hypertension #Hyperlipidemia #History of stroke 2021 #Aortic stenosis status post TAVR Plan: -Schedule Ofirmev IV Q8 hrs, oxycodone as needed, low dose Dilaudid IV prn. -Monitor renal function, hemoglobin after surgery. -Discontinue IV fluid as patient tolerating oral intake. -Attempt Up catheter removal and trial of voiding tomorrow. -Holding home Plavix for now. -Orthopedic surgery following. -Continue home allopurinol, Norvasc, levothyroxine, Protonix, sodium bicarbonate, terazosin, sodium zirconium if able to obtain from home medications as this is not formulary. -Regular diet. -PT consult. -Delirium bundle. -DVT prophylaxis: Aspirin 81 mg twice daily. -CODE STATUS: DNR/DNI -Disposition: Currently inpatient [facility], anticipate low intensity rehab at SNF when discharged. Time Spent With Patient Time: Total time spent is greater than 50% in coordination of care (as documented) at patient's floor/unit and/or counseling patient: QUALITY Stroke Symptom Onset Unknown: Yes VTE Deep Vein Thrombosis/Pulmonary Embolism Present on Admission: No
[2022-09-10] MEDS: oxyCODONE IR 5 MG TABLET PO PRN (17:14)
[2022-09-10] MEDS: ceFAZolin 1 GM VIAL IV SCH ×2 (17:15→23:22)
[2022-09-10] MEDS: ACETAMINOPHEN 500 MG TABLET PO SCH ×2 (17:18→21:18)
[2022-09-10] MEDS ORDERED: TEMAZEPAM 15 MG CAPSULE PO PRN (21:00)
[2022-09-10] MEDS ORDERED: SENNOSIDES 1 TABLET PO SCH (21:00)
[2022-09-10] MEDS: HYDROmorphone 1 MG/ML SYRINGE IV PRN (21:13)
[2022-09-10] MEDS: MELATONIN 3 MG TABLET PO PRN (21:14)
[2022-09-10] MEDS: ASPIRIN 81 MG TAB.CHEW CHEWED SCH (21:14)
[2022-09-10] MEDS: DOCUSATE SODIUM 100 MG CAPSULE PO SCH (21:14)
[2022-09-11] MEDS: oxyCODONE IR 5 MG TABLET PO PRN ×4 (03:48→23:02)
[2022-09-11] MEDS: ACETAMINOPHEN 500 MG TABLET PO SCH ×3 (05:26→21:07)
[2022-09-11] MEDS: 0.9 % SODIUM CHLORIDE 10 ML SYRINGE IV SCH ×5 (05:26→21:04)
[2022-09-11 06:35] LABS: ALT/SGPT < 5 U/L (<40); AST/SGOT 13 U/L (<40); Albumin 3.1 gm/dL (3.2-5.2); Albumin/Globulin Ratio 1.3 (1.0-2.3); Alkaline Phosphatase 68 U/L (39-117); Bilirubin,Direct < 0.2 mg/dL (0-0.3); Bilirubin,Total < 0.2 mg/dL (0.1-1.0); Blood Urea Nitrogen 60 mg/dL (8-23); Calcium 8.1 mg/dL (8.6-10.4); Carbon Dioxide 17 mmol/L (22-30); Chloride 107 mmol/L (96-108); Globulin 2.4 gm/dL (2.2-3.7); Glomerular Filtration Rate 20; Glucose 149 mg/dL (70-105); Lactate Dehydrogenase 217 U/L (135-225); Phosphorous 4.4 mg/dL (2.5-4.5); Triglycerides 112 mg/dL (<150); Uric Acid 5.8 mg/dL (2.5-8.0)
[2022-09-11] MEDS ORDERED: 0.9 % SODIUM CHLORIDE 250 ML IV SCH (07:00)
[2022-09-11] MEDS: PANTOPRAZOLE 40 MG TABLET PO SCH (07:29)
[2022-09-11] MEDS: LEVOTHYROXINE 50 MCG TABLET PO SCH (07:29)
[2022-09-11] MEDS: SENNOSIDES 1 TABLET PO SCH ×2 (08:15→21:04)
[2022-09-11] MEDS: DOCUSATE SODIUM 100 MG CAPSULE PO SCH ×2 (08:16→21:04)
[2022-09-11] MEDS: TERAZOSIN 1 MG CAPSULE PO SCH ×2 (08:16→21:04)
[2022-09-11] MEDS: ALLOPURINOL 100 MG TABLET PO SCH (08:16)
[2022-09-11] MEDS: ASPIRIN 81 MG TAB.CHEW CHEWED SCH ×2 (08:16→21:04)
[2022-09-11] MEDS: amLODIPine 10 MG TABLET PO SCH (08:17)
[2022-09-11] MEDS: SODIUM ZIRCONIUM CYCLOSILICATE PO SCH (08:17)
[2022-09-11] MEDS: SODIUM BICARBONATE 650 MG TABLET PO SCH ×2 (08:17→21:04)
--- NOTE | 2022-09-11 08:51 | EKG ---
[facility] Test Date: 2022-09-09 Pat Name: Mina Schmidt Department: ED Room: Gender: Male Tactical Intelligence Officer: CS : [id number] Requested By: Jose Camarillo Order Number: [id number] Reading MD: Shad Lynn Measurements Intervals [place] Rate: 81 P: 16 UT: 206 QRS: 8 QRSD: 103 T: 83 QT: 404 QTc: 468 Interpretive Statements Sinus rhythm PVC Consider inferior infarct Electronically Signed On 09-11-2022 8:50:40 PDT by Shad Lynn /store/[email or web address]/[id number]
--- NOTE | 2022-09-11 09:43 | Internal Med Progress Note ---
SUBJECTIVE Subjective Patient information: Note initiated : 09/11/22 at 9:39 am Service Date, if different from initiated Date: [] Patient: Mina Schmidt 87 y/o M admitted on 09/09/22 for weakness. Chief Complaint: [] Interval history: Mr. Schmidt is a 87 year old male with a history of hypertension, hyperlipidemia, aortic stenosis status post TAVR, chronic kidney disease stage IV, stroke in 2021 and recurrent falls who presented to the emergency department with worsening left hip pain. History was taken from the patient and his daughter and grandson in the ED. They reported that the patient had a fall on [place] and was taken to an outside emergency department. The patient reportedly had an x-ray and CT scan of his hip and that did not show any acute fractures. They reported that the patient had elevated potassium therefore was admitted for short period of time before discharge. The patient continued to have left hip pain and multiple falls. They reported that he was again taken to the emergency department and had additional imaging which reportedly did not show any acute fractures. The patient was then brought to the [facility] for further evaluation and was found to have a left femoral neck fracture. Orthopedic surgery evaluated the CT scan and felt that the patient would benefit from surgical correction. The patient would like to proceed with surgical correction. Hospital medicine was consulted for admission. We did discuss goals of care as well as CODE STATUS prior to admission. The patient says that he wants to walk again, hopefully return home at some point. He says that he wishes his CODE STATUS to be DNR. We discussed the possibility of complications from surgery including worsening of his renal function, pain, confusion, urinary retention and the risk of if the hospitalization does not go well. The patient and family understand the risks and wished to proceed with surgery. 5/6 No significant events overnight, the patient underwent a left hemiarthroplasty today. Pain control satisfactory, continue scheduled IV Tylenol for now and minimize opioids. Continues with indwelling Up catheter, likely attempt removal tomorrow. PT consulted. 5/7 Blood pressure modestly elevated overnight, vitals otherwise normal. Hemoglobin this morning was 6.6, type and screen for 1 unit red blood cell transfusion. No signs of bleeding or hematoma at the left hip surgical site. Potassium mildly elevated 5.3, recheck in the afternoon. Pain control is satisfactory. Physical therapy today. Physical exam Head: Atraumatic, normal inspection. Eyes: normal appearance, no scleral icterus. Neck: full ROM Respiratory: no respiratory distress. Cardiovascular: normal rate and rhythm, S1, S2 GI/Abdominal: soft, nontender, no guarding. : Indwelling Up catheter Extremities: Left hip surgical incision covered with clean bandage. Neurological: CN II-XII intact, intact motor, intact sensation. Psychiatric: normal mood. Skin: warm, normal color Constitutional Vitals: Vital Signs Temp Pulse Resp BP Pulse Ox O2 Del Method O2 Flow Rate 98.8 F 72 16 156/49 98 Room Air 96 09/11/22 09:04 09/11/22 09:04 09/11/22 09:04 09/11/22 09:04 09/11/22 09:04 09/11/22 09:04 09/10/22 20:00 Period Temp Pulse Resp BP Sys/Butterfield Pulse Ox O2 Del Method O2 Flow Rate Last 24 Hr 97.5 F-98.8 F 65-88 11-18 100-204/39-87 94-100 Oxymask-Room Air 0-96 Intake and Output 09/10/22 09/11/22 09/11/22 19:59 03:59 11:59 Intake Total 240 1460 480 Output Total 300 650 550 Balance -60 810 -70 Weight 86.636 kg Intake & Output: Intake & Output 09/10/22 09/11/22 09/11/22 19:59 03:59 11:59 Intake Total 240 1460 480 Output Total 300 650 550 Balance -60 810 -70 Weight 86.636 kg Intake: IV 500 0 Sodium Chloride 0.45% 1,000 ml 500 0 @ 100 mls/hr IV .Q10H [facility] Rx#: [id number] Lactated Ringers 1,000 ml @ 20 0 mls/hr IV .Q24H [facility] Rx#: [id number] Oral 240 960 480 Output: Urine Catheter Amount 650 Void Amount 300 550 Other: Meal Lunch Percent of Meal Consumed 100% Feeding Ability Independent Urine Appearance Clear Clear Clear Uretheral (Up) Clear Urine Color Yellow Yellow Yellow Uretheral (Up) Yellow Urine Odor Normal Normal Normal Uretheral (Up) Normal OBJ DATA Labs 09/11/22 05:04 09/11/22 05:03 Labs: Abnormal Lab Results 09/11/22 09/11/22 09/11/22 05:04 05:04 05:03 RBC Hgb 6.6 L* Hct 21.2 L POC Hct Immature Gran % (Auto) Lymph % (Auto) Lymph # (Auto) Immature Gran # Potassium 5.3 H POC Chloride Chloride Carbon Dioxide 17 L POC Total CO2 POC BUN BUN 60 H Creatinine 2.7 H POC Creatinine Glucose 149 H POC Glucose Calcium 8.1 L Lactate Dehydrogenase Total Protein 5.5 L Albumin 3.1 L 09/10/22 09/09/22 09/09/22 04:55 14:10 14:08 RBC 3.61 L Hgb 10.9 L Hct 34.9 L POC Hct 32.0 L Immature Gran % (Auto) 4.7 H Lymph % (Auto) 11.9 L Lymph # (Auto) 0.89 L Immature Gran # 0.35 H Potassium POC Chloride 114 H Chloride 113 H Carbon Dioxide 17 L POC Total CO2 18.0 L POC BUN 52 H BUN 53 H Creatinine 2.3 H POC Creatinine 3.3 H Glucose 106 H POC Glucose 129 H Calcium Lactate Dehydrogenase 251 H Total Protein Albumin Meds: Medications Acetaminophen (Acetaminophen 500 Mg Tablet) 1,000 mg PO Q8H [facility]; Protocol Last Admin: 09/11/22 05:26 Dose: 1,000 mg Allopurinol (Allopurinol 100 Mg Tablet) 100 mg PO QDAY [facility] Last Admin: 09/11/22 08:16 Dose: 100 mg Amlodipine Besylate (Amlodipine 10 Mg Tablet) 10 mg PO QDAY [facility] Last Admin: 09/11/22 08:17 Dose: 10 mg Aspirin (Aspirin 81 Mg Tab.Chew) 81 mg CHEWED BID [facility] Last Admin: 09/11/22 08:16 Dose: 81 mg Bisacodyl (Bisacodyl 10 Mg Supp.Rect) 10 mg MD Q2-3DAYS PRN PRN Reason: Constipation Docusate Sodium (Docusate Sodium 100 Mg Capsule) 100 mg PO BID [facility] Last Admin: 09/11/22 08:16 Dose: 100 mg Hydromorphone HCl (Hydromorphone 1 Mg/Ml Syringe) 0.2 mg IV Q2HP PRN; Protocol PRN Reason: Per Pain Protocol Last Admin: 09/10/22 21:13 Dose: 0.2 mg Sodium Chloride (Sodium Chloride 0.9%) 250 mls @ 20 mls/hr IV .[id number] [facility] Stop: 09/11/22 19:29 Last Admin: 09/11/22 08:50 Dose: 20 mls/hr Levothyroxine Sodium (Levothyroxine 50 Mcg Tablet) 50 mcg PO ACB [facility] Last Admin: 09/11/22 07:29 Dose: 50 mcg Magnesium Hydroxide (Magnesium Hydroxide 30 Ml Oral.Susp) 30 ml PO BIDP PRN PRN Reason: Constipation Melatonin (Melatonin 3 Mg Tablet) 3 mg PO HSP PRN PRN Reason: Insomnia Last Admin: 09/10/22 21:14 Dose: 3 mg Ondansetron HCl (Ondansetron 4 Mg/2 Ml Vial) 4 mg IV Q4HP PRN; Protocol PRN Reason: Nausea And Vomiting Oxycodone HCl (Oxycodone Ir 5 Mg Tablet) 5 mg PO Q6HP PRN; Protocol PRN Reason: Per Pain Protocol Last Admin: 09/11/22 03:48 Dose: 5 mg Pantoprazole Sodium (Pantoprazole 40 Mg Tablet) 40 mg PO ACB [facility] Last Admin: 09/11/22 07:29 Dose: 40 mg Sodium Zirconium Cyclosilicate 10 Gram Powder In Packet 1 dose PO DAILY [facility] Last Admin: 09/11/22 08:17 Dose: Not Given Polyethylene Glycol (Polyethylene Glycol 3350 17 Gm Packet) 17 gm PO DAILYP PRN PRN Reason: Constipation Senna (Sennosides 1 Tablet) 2 tab PO BID [facility] Last Admin: 09/11/22 08:15 Dose: 2 tab Sodium Bicarbonate (Sodium Bicarbonate 650 Mg Tablet) 650 mg PO BID [facility] Last Admin: 09/11/22 08:17 Dose: 650 mg Sodium Biphosphate/Sodium Phosphate (Fleets Adult Enema) 1 dose MD Q3-4DAYS PRN PRN Reason: Constipation Sodium Chloride (0.9 % Sodium Chloride 10 Ml Syringe) 10 ml IV Q8 [facility] Last Admin: 09/11/22 05:26 Dose: 10 ml Sodium Chloride (0.9 % Sodium Chloride 10 Ml Syringe) 10 ml IV Q8 [facility] Last Admin: 09/11/22 05:26 Dose: 10 ml Terazosin HCl (Terazosin 1 Mg Capsule) 1 mg PO BID [facility] Last Admin: 09/11/22 08:16 Dose: 1 mg Throat Lozenges (Benzocaine/Menthol 1 Lozenge) 1 lozenge PO PRN PRN PRN Reason: Sore Throat A/P Narrative A/P Narrative: Assessment: 87-year-old male with a history of hypertension, hyperlipidemia, aortic stenosis status post TAVR, chronic kidney disease stage IV, stroke in 2021, gout, hypothyroidism admitted for a left femoral neck fracture. #Left femoral neck fracture status post ORIF 09/10/2022 #Acute on chronic anemia #CKD stage IV complicated by metabolic acidosis, stable #Mild hyperkalemia. #Urinary retention requiring up catheter #Recurrent falls #Hypertension #Hyperlipidemia #History of stroke 2021 #Aortic stenosis status post TAVR Plan: -Schedule Ofirmev IV Q8 hrs, oxycodone as needed, low dose Dilaudid IV prn. -1 unit red blood cell transfusion today, follow hemoglobin. -Monitor renal function, potassium. -Attempt Up catheter removal and trial of voiding tomorrow as long as hem oglobin stable. -Holding home Plavix for now. -Orthopedic surgery following. -Continue home allopurinol, Norvasc, levothyroxine, Protonix, sodium bicarbonate, terazosin, sodium zirconium if able to obtain from home medications as this is not formulary. -Regular diet. -PT consult. -Delirium bundle. -DVT prophylaxis: Aspirin 81 mg twice daily. -CODE STATUS: DNR/DNI -Disposition: Currently inpatient MedSurg, anticipate low intensity rehab at SNF when discharged. Time Spent With Patient Time: Total time spent is greater than 50% in coordination of care (as documented) at patient's floor/unit and/or counseling patient: QUALITY Stroke Symptom Onset Unknown: Yes VTE Deep Vein Thrombosis/Pulmonary Embolism Present on Admission: No
[2022-09-11 16:46] LABS: Calcium 8.4 mg/dL (8.6-10.4); Phosphorous 4.2 mg/dL (2.5-4.5)
[2022-09-11] MEDS: MELATONIN 3 MG TABLET PO PRN (23:02)
[2022-09-12] MEDS: HYDROmorphone 1 MG/ML SYRINGE IV PRN (01:43)
[2022-09-12] MEDS: 0.9 % SODIUM CHLORIDE 10 ML SYRINGE IV SCH (05:24)
[2022-09-12] MEDS: ACETAMINOPHEN 500 MG TABLET PO SCH (05:24)
[2022-09-12] MEDS: oxyCODONE IR 5 MG TABLET PO PRN (05:24)
--- NOTE | 2022-09-12 07:54 | Operative Note ---
DATE OF OPERATION: 09/10/2022 DATE OF PROCEDURE: 09/10/2022 PREOPERATIVE DIAGNOSIS: Left femoral neck fracture, 2 weeks old. POSTOPERATIVE DIAGNOSIS: Left femoral neck fracture, 2 weeks old. PROCEDURE: Left hip hemiarthroplasty with cementless [place] components. SURGEON: Stefano Painter M.D. RESPIRATORY THERAPY DIRECTOR: Daniel Baum PA-C. This providers expertise and technical skill were required throughout the case. The [facility] assisted with preoperative coordination, intraoperative retraction, wound closure, and dressing and splint application, as well as postoperative documentation and care coordination. ANESTHESIA: General LMA anesthesia. COMPLICATIONS: None. DESCRIPTION OF PROCEDURE: The patient was brought to the operating room, put to sleep with general LMA anesthesia. Once asleep, the patient had the left hip sterilely prepped and draped in the usual sterile fashion. Timeout was performed, confirming the operative site by initials, consent form, and x-rays confirming that preoperative antibiotics and tranexamic acid had been given. Once done, we then made a superior approach to the hip, which was 4 inches in length. I dissected to the fascial layer, incised through the gluteus luis alfredo and placed a Charnley retractor. I then released the posterior capsule and superior capsule, removing the fractured ball from the acetabulum, preserving the labrum and then broaching up on the femur, making the neck cut flat and then we broached up to the size 4 stem. The size 4 stem allowed us to calcar ream and place a trial of a size 4 stem, high offset with a +4 and then a +8 neck length. A +8 neck length with a 51 mm ball seemed to be the most appropriate stabilizing his hip and giving us back his leg length. We irrigated thoroughly, placed the cementless size 4 stem with a collar. We also placed a +8 neck length on a 51 mm bipolar head. This was reduced. The capsule was repaired with #1 Ethibond and then we closed the fascial layer with #1 Stratafix. Blood loss about 50 mL. Blood products given none. Thorough irrigation was achieved. We then placed and adhesive closure on the wound. The patient tolerated this well without complication. [email or web address] Job ID: [id number] Doc ID: [id number] Stefano Painter MD
[2022-09-12] MEDS: ALLOPURINOL 100 MG TABLET PO SCH (08:48)
[2022-09-12] MEDS: LEVOTHYROXINE 50 MCG TABLET PO SCH (08:48)
[2022-09-12] MEDS: SODIUM BICARBONATE 650 MG TABLET PO SCH (08:48)
[2022-09-12] MEDS: amLODIPine 10 MG TABLET PO SCH (08:49)
[2022-09-12] MEDS: TERAZOSIN 1 MG CAPSULE PO SCH (08:49)
[2022-09-12] MEDS: DOCUSATE SODIUM 100 MG CAPSULE PO SCH (08:49)
[2022-09-12] MEDS: SENNOSIDES 1 TABLET PO SCH (08:49)
[2022-09-12] MEDS: ASPIRIN 81 MG TAB.CHEW CHEWED SCH (08:49)
[2022-09-12] MEDS: PANTOPRAZOLE 40 MG TABLET PO SCH (08:50)
[2022-09-12] MEDS: SODIUM ZIRCONIUM CYCLOSILICATE PO SCH (08:50)
[2022-09-12 10:28] LABS: Albumin 2.9 gm/dL (3.2-5.2); Blood Urea Nitrogen 66 mg/dL (8-23); Calcium 8.4 mg/dL (8.6-10.4); Carbon Dioxide 16 mmol/L (22-30); Chloride 111 mmol/L (96-108); Glomerular Filtration Rate 22; Glucose 95 mg/dL (70-105); Phosphorous 4.2 mg/dL (2.5-4.5)
--- NOTE | 2022-09-12 13:02 | Discharge Summary ---
Discharge Provider Provider IMPORTANT FOLLOW-UP INFORMATION FOR PCP: Patient information: Note initiated : 09/12/22 at 1:00 pm Service Date, if different from initiated Date: [] Patient: Mina Schmidt 87 y/o M admitted on 09/09/22 for weakness. Chief Complaint: [] Date of admission: 09/09/22 17:45 Discharge date: 09/12/22 Primary care physician: Ludwin Maldonado Consults: 09/09/22 Consult to Physician [CONS] Stat Comment: Consulting Provider: Jose Nelson Reason For Exam: Physician to Consult 09/09/22 18:48 Consult to Physician [CONS] Stat Comment: Left femoral neck fracture Consulting Provider: Stefano Painter Reason For Exam: Physician to Consult 09/10/22 14:37 Consult to Physician [CONS] Routine Comment: Consulting Provider: [facility] Devin Reason For Exam: Physician to Consult COURSE Hospital Course Hospital course: Mr. Schmidt is a 87 year old male with a history of hypertension, hyperlipidemia, aortic stenosis status post TAVR, chronic kidney disease stage IV, stroke in 2021 and recurrent falls who presented to the emergency department with worsening left hip pain. History was taken from the patient and his daughter and grandson in the ED. They reported that the patient had a fall on [place] and was taken to an outside emergency department. The patient reportedly had an x-ray and CT scan of his hip and that did not show any acute fractures. They reported that the patient had elevated potassium therefore was admitted for short period of time before discharge. The patient continued to have left hip pain and multiple falls. They reported that he was again taken to the emergency department and had additional imaging which reportedly did not show any acute fractures. The patient was then brought to the [facility] for further evaluation and was found to have a left femoral neck fracture. Orthopedic surgery evaluated the CT scan and felt the fracture was about 2 weeks old and that the patient would benefit from surgical correction. The patient would like to proceed with surgical correction. Hospital medicine was consulted for admission. We did discuss goals of care as well as CODE STATUS prior to admission. The patient says that he wants to walk again, hopefully return home at some point. He says that he wishes his CODE STATUS to be DNR. We discussed the possibility of complications from surgery including worsening of his renal function, pain, confusion, urinary retention and the risk of if the hospitalization does not go well. The patient and family understand the risks and wished to proceed with surgery. 56 No significant events overnight, the patient underwent a left hemiarthroplasty today. Pain control satisfactory, continue scheduled IV Tylenol for now and minimize opioids. Continues with indwelling Langley catheter, likely attempt removal tomorrow. PT consulted. 09/11 Blood pressure modestly elevated overnight, vitals otherwise normal. Hemoglobin this morning was 6.6, type and screen for 1 unit red blood cell transfusion. No signs of bleeding or hematoma at the left hip surgical site. Potassium mildly elevated 5.3, recheck in the afternoon. Pain control is satisfactory. Physical therapy today. 09/12 Vital stable overnight, hemoglobin this morning 7.2, recheck hemoglobin at noon and 7.4. Remove Langley catheter. Orthopedic surgery is okay with discharge from their standpoint. Plan at discharge is for aspirin 81 mg twice daily for DVT prophylaxis per orthopedic surgery followed by aspirin 81 mg once daily. Will resume Plavix 75 mg daily at discharge as well. The patient was on dual antiplatelet therapy prior to admission. The patient was discharged to a halfway facility for low intensity rehab. Physical exam Head: Atraumatic, normal inspection. Eyes: normal appearance, no scleral icterus. Neck: full ROM Respiratory: no respiratory distress. Cardiovascular: normal rate and rhythm, S1, S2 GI/Abdominal: soft, nontender, no guarding. : Indwelling Langley catheter Extremities: Left hip surgical incision covered with clean bandage. Neurological: CN II-XII intact, intact motor, intact sensation. Psychiatric: normal mood. Skin: warm, normal color Discharge diagnosis: Left femoral neck fracture, 2 weeks old Time Spent with Patient Time attestation: Total time spent providing and/or coordinating discharge services: Time spent: Greater than 30 minutes EXAM Constitutional Vitals: Temp Pulse Resp BP Pulse Ox O2 Del Method O2 Flow Rate 98.4 F 76 16 144/53 98 Room Air 98 09/12/22 11:48 09/12/22 11:48 09/12/22 11:48 09/12/22 11:48 09/12/22 11:48 09/12/22 11:48 09/11/22 20:00 Discharge Data Data Completed and Pending Labs on day of discharge: Labs from last 24 hours 0509/12/22 09/12/22 12:00 08:30 08:30 Hgb 7.4 L 7.2 L Sodium 139 Potassium 4.9 Chloride 111 H Carbon Dioxide 16 L Anion Gap 12.0 BUN 66 H Creatinine 2.5 H GFR Calculation 22 Glucose 95 Calcium 8.4 L Phosphorus 4.2 Albumin 2.9 L 09/11/22 09/11/22 16:00 16:00 Hgb 8.0 L Sodium 134 Potassium 4.7 Chloride 107 Carbon Dioxide 14 L Anion Gap 13.0 BUN 62 H Creatinine 2.7 H GFR Calculation 20 Glucose 147 H Calcium 8.4 L Phosphorus 4.2 Albumin 3.0 L Discharge Plan Patient/Caregiver Discharge Instructions Activity: ambulate only with your walker and as per physical therapy Diet: Regular Diet Prescriptions: New docusate sodium 100 mg capsule 100 mg PO BID Qty: 60 0RF hydrocodone-acetaminophen 5-325 mg tablet 1 - 2 tab PO Q4H PRN (Reason: Pain) Qty: 30 0RF acetaminophen 500 mg Tablet 500 mg PO Q4HP PRN (Reason: fever or pain) Qty: 30 0RF Aspirin 81 mg PO BID Qty: 60 1RF Continued allopurinol 100 mg tablet 100 mg PO QDAY levothyroxine [Synthroid] 50 mcg tablet 50 mcg PO QDAY amlodipine 10 mg tablet 10 mg PO QDAY niacin 250 mg tablet 500 mg PO QDAY terazosin 1 mg capsule 1 mg PO BID sodium bicarbonate 650 mg tablet 650 mg PO BID clonidine HCl 0.1 mg tablet 0.1 mg PO QHS PRN (Reason: antihypertensive) docusate sodium 100 mg tablet 100 mg PO QDAY sodium zirconium cyclosilicate 10 gram powder in packet 10 g PO QDAY chlorthalidone 25 mg tablet 25 mg PO QDAY pantoprazole 40 mg tablet,delayed release (DR/EC) 40 mg PO QDAY clopidogrel 75 mg tablet 75 mg PO QDAY polyethylene glycol 3350 [Miralax] 17 gram powder in packet 17 g PO QDAY PRN (Reason: Constipation) bisacodyl [Dulcolax (bisacodyl)] 10 mg suppository 10 mg [place] QDAY PRN (Reason: Constipation) No Action aspirin 81 mg tablet 81 mg PO QDAY Other Ambulatory Orders: Physical Therapy DC - BALDEV (Routine) Location: None Selected Ordered By: Daniel Baum Toilet Riser Discharge Order (ONCE) Location: None Selected Ordered By: Daniel Baum Walker (ONCE) Location: None Selected Ordered By: Daniel Baum Follow Up Plan Follow up with: Ludwin Maldonado MD [Primary Care Provider] - Stefano Painter MD [Physician] - 09/27/22 8:50 am (Be sure to arrive for this appointment at 8:30 with insurance, list of medications, ID, and completed paperwork. ) Daniel Baum PA-C [Physician Social Worker Assistant] - Patient Disposition: Xfer SNF Prognosis: Fair Rehab Potential: Fair I certify that the patient requires SNF services: Yes Overall status at discharge: patient is not back to baseline Discharge Orders: Discharge Order (Routine); Ordered 09/12/22 Ordered By: Daniel Baum QUALITY VTE Deep Vein Thrombosis/Pulmonary Embolism Present on Admission: No
== END 2022-09-12 14:35 | DRG 522 ==
LOC: ED 13:45 → MEDSUR 17:45
PROVIDERS: ADMIT Internal Medicine; ATTEND Internal Medicine

== ENCOUNTER 2022-10-30 09:07 | Inpatient (IN) ==
[2022-10-30] MEDS ORDERED: IOPAMIDOL 100 ML BOTTLE IV ONE (09:08)
[2022-10-30 09:18] LABS: POC Calcium, Ionized 1.18 (1.16-1.32); POC Creatinine 2.1 (0.6-1.2); POC Potassium 4.2 (3.3-5.1)
[2022-10-30] MEDS ORDERED: 0.9 % SODIUM CHLORIDE 500 ML IV ONE (09:18)
--- NOTE | 2022-10-30 09:27 | Emergency Department Note ---
Weakness HPI General Chief complaint: Trauma Stated complaint: fall-loc Time Seen by Provider: 10/30/22 09:17 Source: family Mode of arrival: wheelchair Limitations: no limitations History of Present Illness HPI Narrative: Narrative: Patient presents to the ED escorted by his daughter with concerns of increasing weakness over the last 3 days. Daughter states that patient fell this morning. The EMS came out and daughter transported patient to the ED after being helped into her car by EMS. Daughter states that patient has just not been himself for the past 3 days. He states he is very weak and lethargic and leaning to his right side. She states that he did have a stroke at the end of last year. She states that he did have hip replacement 2 months ago. He is on blood thinners. Patient states that he feels fine other than his head that he hit when he fell. He states he does not think he got knocked out. He denies chest pain, shoulder pain, knee pain, abdominal pain, back pain, bowel bladder incontinence, extremity weakness, extremity numbness, fever, chills. He denies any dysuria hematuria. Patient denies any other alleviating or aggravating factors. Related Data Home Medications Medication Instructions Recorded Confirmed allopurinol 100 mg tablet 100 mg PO QDAY 09/27/16 09/23/22 amlodipine 10 mg tablet 10 mg PO QDAY 09/27/16 09/23/22 levothyroxine 50 mcg tablet 50 mcg PO QAM 09/27/16 09/23/22 (Synthroid) niacin 250 mg tablet 500 mg PO QHS 10/28/21 09/23/22 bisacodyl 10 mg rectal suppository 10 mg IN QDAY PRN Constipation 04/29/22 09/23/22 (Dulcolax (bisacodyl)) chlorthalidone 25 mg tablet 25 mg PO QDAY 04/29/22 09/23/22 clonidine HCl 0.1 mg tablet 0.1 mg PO QHS PRN antihypertensive 04/29/22 09/23/22 clopidogrel 75 mg tablet 75 mg PO QDAY 04/29/22 09/23/22 pantoprazole 40 mg tablet,delayed 40 mg PO QAM 04/29/22 09/23/22 release polyethylene glycol 3350 17 gram 17 g PO QDAY PRN Constipation 04/29/22 09/23/22 oral powder packet (Miralax) sodium bicarbonate 650 mg tablet 650 mg PO BID 04/29/22 09/23/22 sodium zirconium cyclosilicate 10 10 g PO QDAY 04/29/22 09/23/22 gram oral powder packet terazosin 1 mg capsule 1 mg PO BID 04/29/22 09/23/22 ferrous sulfate 325 mg (65 mg 325 mg PO QDAY 09/23/22 09/23/22 iron) tablet methocarbamol 500 mg tablet 500 mg PO TID 09/23/22 09/23/22 tamsulosin 0.4 mg capsule 0.4 mg PO QDAY 09/23/22 09/23/22 Previous Rx's Medication Instructions Recorded docusate sodium 100 mg capsule 100 mg PO BID #60 caps 09/10/22 hydrocodone 5 mg-acetaminophen 325 1 - 2 tab PO Q4H PRN Pain #30 tabs 09/10/22 mg tablet acetaminophen 500 mg tablet 500 mg PO Q4HP PRN fever or pain 09/12/22 #30 tabs Allergies Allergy/AdvReac Type Severity Reaction Status Date / Time NSAIDS (Non-Steroidal Allergy Unknown Unknown Verified 10/30/22 09:17 Anti-Inflamma [id number] Reductase Allergy Unknown Unknown Verified 10/30/22 09:17 Inhibitor [Prwntdb-Fbk-Led Reductase Inhibitor] Review of Systems ROS ROS Narrative: Narrative: All systems ED: reviewed and negative except as stated. PFSH Narrative Patient History Narrative: Narrative: Medical/Surgical/Family History All Active Problems (Updated 10/30/22 @ 12:45 by Jose Camarillo DO) Closed subcapital fracture of left femur (Acute) Acute right-sided weakness (Acute) Fall (Acute) Hematoma of frontal scalp (Acute) Hyperkalemia (Acute) Chronic kidney disease (CKD) stage G4/A1, severely decreased glomerular filtration rate (GFR) between 15-29 mL/min/1.73 square meter and albuminuria c reatinine ratio less than 30 mg/g (Chronic) Metabolic acidosis (Chronic) Anemia in stage 4 chronic kidney disease (Chronic) Secondary hyperparathyroidism of renal origin (Chronic) Obesity (Chronic) Lumbar back pain (Chronic) Duodenal ulcer (Chronic) Anemia (Chronic) Erectile dysfunction (Chronic) Gout (Chronic) Neoplasm of uncertain behavior of skin (Chronic) Squamous cell skin cancer (Chronic) Dermatitis, eczematoid (Chronic) Moderate to severe aortic stenosis (Chronic) Hypertension (Chronic) Hyperlipidemia (Chronic) BPH (benign prostatic hyperplasia) (Chronic) Hypothyroidism (Chronic) Decreased urination (Chronic) Aortic stenosis (Chronic) Medical History (Updated 10/30/22 @ 12:45 by Jose Camarillo DO) Anemia Aortic stenosis BPH (benign prostatic hyperplasia) Decreased urination Dermatitis, eczematoid Duodenal ulcer Erectile dysfunction Gout Hyperlipidemia Hypertension Hypothyroidism Lumbar back pain Moderate to severe aortic stenosis Neoplasm of uncertain behavior of skin Obesity Secondary hyperparathyroidism of renal origin Squamous cell skin cancer Left forearm-excised 2010 Surgical History No pertinent past surgical history Family History Mother Stroke Father Asthma Brother Alcoholism Diabetes Sister Colon cancer Social History Smoking Status: Former smoker Alcohol Intake Frequency: a few times a month Substance Use: does not use Exam Narrative Narrative: Narrative: General Limitations: no limitations General appearance: Present alert Expanded Head Head physical: Absent raccoon eyes, Palomares's sign or CSF otorrhea Head image: 1. Large area of bruising and swelling consistent with contusion Eye Eye: Present PERRL and EOMI ENT ENT: Present normal oropharynx and mucous membranes dry Neck Neck: Present normal inspection; Absent tenderness Chest Chest: Present normal inspection; Absent tenderness Respiratory Respiratory: Present normal lung sounds bilaterally; Absent respiratory distress Cardiovascular Cardiovascular: Present regular rate and normal rhythm Adbominal Abdominal: Present soft; Absent tenderness Extremities Extremities: Present normal inspection and normal capillary refill Back Back: Absent L-S tenderness Neurological Neurological: Present alert and oriented X3 Psychiatric Psychiatric: Present normal affect and normal mood Skin Skin: Present warm (WNL) and intact Course Course Course Narrative: Patient was evaluated for worsening weakness over the last 3 days with a recent fall. Patient had a large contusion on his forehead. NIH score of 3. CT of the head was obtained with image of myself with no acute intracranial findings such as a bleed or stroke which were both considered. Other labs were relatively unremarkable that were obtained. We tried to ambulate the patient and he kept drifting to the right and his daughter states that this is not his baseline. Normally he is able to walk with his walker without any issue. Again his last known well was about 3 days ago so he is well outside any treatment window if patient is having a stroke. When having got a CTA of the head and neck that was unremarkable. Patient is hemodynamically stable. Due to patient's continued weakness on that right side and inability to ambulate near his baseline recommend that he be admitted to the hospital for MRI and evaluation by PT/OT for possible placement. Case discussed with hospitalist who has agreed to admit the patient. Consultations Consultation #1: Case discussed with hospitalist, Dr. Castanon, who states he is willing to admit the patient if a bed is available. Time: 12:20 Vital Signs Vital signs: Vital Signs Temperature 97.4 F 10/30/22 09:08 Pulse Rate 67 10/30/22 09:08 Respiratory Rate 16 10/30/22 09:08 Blood Pressure 169/52 10/30/22 09:08 Pulse Oximetry (%) 99 10/30/22 09:08 Oxygen Delivery Method Room Air 10/30/22 09:08 Temperature 97.4 F 10/30/22 09:08 Pulse Rate 67 10/30/22 12:20 Respiratory Rate 14 10/30/22 12:20 Blood Pressure 157/67 10/30/22 12:20 Pulse Oximetry (%) 98 10/30/22 12:20 Oxygen Delivery Method Room Air 10/30/22 09:08 MDM MDM Narrative Medical decision making narrative: Narrative: Differential Diagnosis Differential Diagnosis: Intracranial bleed, stroke, UTI Medical Records Medical records reviewed: Yes I reviewed the patient's medical records. Lab Data Lab results reviewed: Yes I reviewed the patient's lab results. 10/30/22 09:17 Labs: Lab Results 10/30/22 10/30/22 10/30/22 Range/Units 09:16 09:16 09:17 WBC 5.5 (4.5-11.0) K/mcL RBC 2.80 L (4.63-6.08) M/mcL Hgb 8.5 L (13.7-17.5) g/dL Hct 26.6 L (40.1-51.0) % POC Hct 24.0 L (41-55) MCV 95.0 (80.0-100.0) fL MCH 30.4 (26.0-34.0) pg MCHC 32.0 (31.0-36.0) g/dL RDW 14.1 (11.5-14.5) % Plt Count 215 (140-440) K/mcL MPV 9.5 (8.8-12.5) fL Immature Gran % (Auto) 3.3 H (0.0-0.5) % Neut % (Auto) 68.6 (38.0-78.0) % Lymph % (Auto) 10.6 L (15.5-49.0) % [place] % (Auto) 14.6 H (1.0-12.0) % Eos % (Auto) 2.2 (0.0-7.0) % Baso % (Auto) 0.7 (0.0-2.0) % Lymph # (Auto) 0.58 L (1.50-4.80) K/mcL [place] # (Auto) 0.80 (0.10-0.90) K/mcL Eos # (Auto) 0.12 (0.00-0.70) K/mcL Baso # (Auto) 0.04 (0.00-0.30) K/mcL Immature Gran # 0.18 H (0.00-0.05) K/mcl Absolute Neutrophils 3.77 (1.80-8.00) K/mcL POC VBG pH 7.36 (7.32-7.42) POC VBG pCO2 at Temp 31.0 L (41-51) POC VBG pO2 29 (25-40) POC VBG HCO3 17.5 L (24-28) POC VBG Total CO2 18.0 L (25-29) POC Venous O2 Sat 54.0 (40-70) POC VBG Base Excess -8.0 L (-2-2) VBG Lactic Acid 0.6 (0.5-2) POC Sodium 143 (133-145) POC Potassium 4.2 (3.3-5.1) POC Chloride 114 H (96-108) POC Total CO2 19.0 L (22-30) POC Anion Gap 15.0 (8.0-16.0) POC BUN 48 H (6-20) POC Creatinine 2.1 H (0.6-1.2) POC Glucose 117 H (70-105) POC WB Ioniz Calcium 1.18 (1.16-1.32) Total Bilirubin (0.1-1.0) mg/dL Direct Bilirubin (0-0.3) mg/dL AST (<40) U/L ALT (<40) U/L Alkaline Phosphatase (39-117) U/L Ammonia (16-60) umol/L Total Protein (5.9-8.4) gm/dL Albumin (3.2-5.2) gm/dL Globulin (2.2-3.7) gm/dL 10/30/22 10/30/22 Range/Units 09:17 09:17 WBC (4.5-11.0) K/mcL RBC (4.63-6.08) M/mcL Hgb (13.7-17.5) g/dL Hct (40.1-51.0) % POC Hct (41-55) MCV (80.0-100.0) fL MCH (26.0-34.0) pg MCHC (31.0-36.0) g/dL RDW (11.5-14.5) % Plt Count (140-440) K/mcL MPV (8.8-12.5) fL Immature Gran % (Auto) (0.0-0.5) % Neut % (Auto) (38.0-78.0) % Lymph % (Auto) (15.5-49.0) % [place] % (Auto) (1.0-12.0) % Eos % (Auto) (0.0-7.0) % Baso % (Auto) (0.0-2.0) % Lymph # (Auto) (1.50-4.80) K/mcL [place] # (Auto) (0.10-0.90) K/mcL Eos # (Auto) (0.00-0.70) K/mcL Baso # (Auto) (0.00-0.30) K/mcL Immature Gran # (0.00-0.05) K/mcl Absolute Neutrophils (1.80-8.00) K/mcL POC VBG pH (7.32-7.42) POC VBG pCO2 at Temp (41-51) POC VBG pO2 (25-40) POC VBG HCO3 (24-28) POC VBG Total CO2 (25-29) POC Venous O2 Sat (40-70) POC VBG Base Excess (-2-2) VBG Lactic Acid (0.5-2) POC Sodium (133-145) POC Potassium (3.3-5.1) POC Chloride (96-108) POC Total CO2 (22-30) POC Anion Gap (8.0-16.0) POC BUN (6-20) POC Creatinine (0.6-1.2) POC Glucose (70-105) POC WB Ioniz Calcium (1.16-1.32) Total Bilirubin 0.4 (0.1-1.0) mg/dL Direct Bilirubin < 0.2 (0-0.3) mg/dL AST 26 (<40) U/L ALT 9 (<40) U/L Alkaline Phosphatase 94 (39-117) U/L Ammonia 20 (16-60) umol/L Total Protein 5.9 (5.9-8.4) gm/dL Albumin 3.3 (3.2-5.2) gm/dL Globulin 2.6 (2.2-3.7) gm/dL EKG Data EKG #1: EKG attestation: Yes I reviewed and interpreted this EKG. EKG shows normal: sinus rhythm Rate: normal Rhythm: NSR Ralls/QRS: normal Heart block present: None ST segment elevation in: None ST segment depression in: None QTc: normal Interpretation: no acute changes Core Measures AMI Core Measures Followed: Yes Discharge Plan Patient/Caregiver Discharge Instructions Pt seen by INTERNATIONAL MANAGER/PA only: No Clinical Impression: Acute right-sided weakness, Fall, Hematoma of frontal scalp Patient Disposition: Xfer As Outpt/Obs (TS) Condition: Fair Follow up with: Aaron Nickerson DO [Primary Care Provider] - Prescriptions: No Action allopurinol 100 mg tablet 100 mg PO QDAY levothyroxine [Synthroid] 50 mcg tablet 50 mcg PO QAM amlodipine 10 mg tablet 10 mg PO QDAY niacin 250 mg tablet 500 mg PO QHS terazosin 1 mg capsule 1 mg PO BID sodium bicarbonate 650 mg tablet 650 mg PO BID clonidine HCl 0.1 mg tablet 0.1 mg PO QHS PRN (Reason: antihypertensive) sodium zirconium cyclosilicate 10 gram powder in packet 10 g PO QDAY chlorthalidone 25 mg tablet 25 mg PO QDAY pantoprazole 40 mg tablet,delayed release (DR/EC) 40 mg PO QAM clopidogrel 75 mg tablet 75 mg PO QDAY polyethylene glycol 3350 [Miralax] 17 gram powder in packet 17 g PO QDAY PRN (Reason: Constipation) bisacodyl [Dulcolax (bisacodyl)] 10 mg suppository 10 mg IN QDAY PRN (Reason: Constipation) docusate sodium 100 mg capsule 100 mg PO BID Qty: 60 0RF hydrocodone-acetaminophen 5-325 mg tablet 1 - 2 tab PO Q4H PRN (Reason: Pain) Qty: 30 0RF acetaminophen 500 mg Tablet 500 mg PO Q4HP PRN (Reason: fever or pain) Qty: 30 0RF methocarbamol 500 mg Tablet 500 mg PO TID tamsulosin 0.4 mg Capsule 0.4 mg PO QDAY ferrous sulfate 325 mg (65 mg iron) Tablet 325 mg PO QDAY
[2022-10-30 09:55] LABS: Basophils # (Auto) 0.04 K/mcL (0.00-0.30); Basophils % (Auto) 0.7 % (0.0-2.0); Eosinophils # (Auto) 0.12 K/mcL (0.00-0.70); Eosinophils % (Auto) 2.2 % (0.0-7.0); Hematocrit 26.6 % (40.1-51.0); Hemoglobin 8.5 g/dL (13.7-17.5); Lymphocytes # (Auto) 0.58 K/mcL (1.50-4.80); Lymphocytes % (Auto) 10.6 % (15.5-49.0); Mean Platelet Volume 9.5 fL (8.8-12.5); Monocytes % (Auto) 14.6 % (1.0-12.0); Neutrophils % (Auto) 68.6 % (38.0-78.0); Platelet Count 215 K/mcL (140-440); Red Cell Distribution Width 14.1 % (11.5-14.5); WBC 5.5 K/mcL (4.5-11.0)
--- NOTE | 2022-10-30 10:04 | Cat Scan Report ---
History: Multiple falls, neck injury TECHNIQUE: The neck was imaged without contrast in axial plane at 2.5 mm intervals. Sagittal and coronal reformats were created. The radiation exposure was limited using dose reduction technology. FINDINGS: There is a moderate amount of mucosal thickening in the left maxillary sinus. Skull base is normal. Cervico-occipital junction is normal. Neck is held in flexion. There is no fracture, spondylolisthesis or destructive bone lesion. Moderate osteoarthritis is present at the articulation of the odontoid and anterior ring of C1. There is mild congenital spinal canal narrowing throughout the neck. This is accentuated by small broad-based posterior bulge at C3-4. Moderate arthritis is present in the facet joints in the mid and lower cervical spine bilaterally, right worse than left. There is mild spurring of the uncinate processes. There is moderate stenosis of the neural foramina bilaterally at C4-5 and C5-6. There is no paraspinal mass or hematoma. There is bronchial wall thickening in both upper lobes and nonuniform ventilation and perfusion in the upper lobes, consistent with bronchitis. Moderate amount of atherosclerotic plaque is present in the carotid bifurcations. 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 Dr. Camarillo was called with the report Interpreted and Authenticated by: Albert Canales 10/30/22
[2022-10-30 10:17] LABS: ALT/SGPT 9 U/L (<40); AST/SGOT 26 U/L (<40); Albumin 3.3 gm/dL (3.2-5.2); Alkaline Phosphatase 94 U/L (39-117); Bilirubin,Direct < 0.2 mg/dL (0-0.3); Bilirubin,Total 0.4 mg/dL (0.1-1.0); Globulin 2.6 gm/dL (2.2-3.7)
--- NOTE | 2022-10-30 10:36 | Cat Scan Report ---
History: Multiple falls over the past few days, anticoagulated, prior right frontal lobe infarct TECHNIQUE: The brain was imaged without contrast in axial plane at 2.5 mm intervals. Sagittal and coronal reformats were created. The radiation exposure was limited using dose reduction technology. FINDINGS: There is a small scalp hematoma to the left of midline, anterior to the left frontal bone. No skull fracture is present. There is no intracranial hemorrhage or cerebral edema. There is a moderate-sized old infarct with encephalomalacia posteriorly and medially in the apex of the right frontal lobe. This was seen acutely at the time of the prior MRI done on 02/28/22. There is a small old lacunar infarct inferiorly in the left globus pallidus. No acute infarct is detected. There is mild generalized atrophy, most apparent in the frontal lobes. Patchy areas of decreased attenuation are present in the white matter in the frontal and parietal lobes bilaterally. This is chronic and was present on the prior MRI. Ventricles are normal in size. No abnormal extra-axial fluid collection is present. Visualized portions of the orbits and sinuses are normal. IMPRESSION: Small left frontal scalp hematoma. No acute brain injury Old infarcts in the right frontal lobe and left basal ganglia Stable age-related degenerative changes Dr. Camarillo was called with the report Interpreted and Authenticated by: Albert Canales 10/30/22
--- NOTE | 2022-10-30 10:36 | Cat Scan Report ---
History: Multiple recent falls with pelvic injury TECHNIQUE: The pelvis was imaged without contrast in axial plane from above the iliac crests through the prosthetic left hip. Sagittal and coronal reformats were created. The radiation exposure was limited using dose reduction technology. FINDINGS: No pelvic or hip fracture are present. There is a well-positioned left hip prosthesis. There is no reabsorption of bone around the hardware. Right hip joint is mildly narrowed and there are small marginal spurs. SI joints and symphysis pubis are normal. There is mild disc degeneration at L5-S1 with gas in the nucleus pulposus. Small posterior bulges are present at L4-5 and L5-S1. No pelvic hematoma or mass are present. There is no ascites. Moderate amount of atherosclerotic plaque is present in the pelvis and both thighs. 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 There is no retroperitoneal hemorrhage. IMPRESSION: No fracture Dr. Camarillo was called with the report Interpreted and Authenticated by: Albert Canales 10/30/22
--- NOTE | 2022-10-30 12:03 | Cat Scan Report ---
History: Neurologic deficit, multiple falls, loss of consciousness TECHNIQUE: Following prehydration with fluids, 70 cc of nonionic contrast was injected. Arterial phase images were acquired from the ascending aorta to the top of the head. Sagittal, coronal, MIPS and 3-D volume rendered images were created. The radiation exposure was limited using dose reduction technology. FINDINGS: NECK: The aortic arch is normal in caliber. There are scattered plaques along the wall. There is no aneurysm or dissection. Moderate amount calcified plaque is present in the coronary arteries. The common carotids are normal. There is a moderate amount calcified plaque in the carotid bifurcations and proximal internal carotids bilaterally. These are causing less than 50% stenoses of the internal carotids. There is a 70% stenosis of the right external carotid and approximately 50% stenosis left external carotid. The vertebral arteries are normal in caliber and nearly symmetric. There is mild arthritis in the neck at several levels. No soft tissue mass is present in the neck. Brain: There is a large amount calcified plaque in the cavernous portions and supraclinoid portions of both internal carotids. These are causing roughly 50% stenosis of the internal carotids at the level of the anterior clinoids. The anterior and middle cerebral arteries are normal in caliber and there is no thrombosis or stenosis. There is a patent anterior communicating and a large right posterior communicating artery. The vertebral and basilar arteries are normal. Posterior cerebrals normal. Posterior fossa circulation is normal. There is no intracranial occlusion thrombosis or hemodynamically significant stenosis. No aneurysm or vascular malformation are present. There is no enhancing lesion within the brain. 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 No hemodynamically significant stenosis or occlusion in the head or neck Dr. Camarillo was called with the report Interpreted and Authenticated by: Albert Canales 10/30/22
--- NOTE | 2022-10-30 13:34 | Internal Med History&Physical ---
HPI History of Present Illness Patient information: Note initiated : 10/30/22 at 1:23 pm Service Date, if different from initiated Date: [] Patient: Mina Schmidt 87 y/o M admitted on . Chief Complaint: [] History of present illness: Mr. Schmidt is a 87 year old Male with a history of hypertension, hyperlipidemia, aortic stenosis status post TAVR, chronic kidney disease stage IV, prior stroke, recurrent falls complicated by a left femoral neck fracture in late August corrected surgically approximately 2 weeks later at [facility] who now presents to the emergency department after a fall at home and progressively increasing weakness over the last few days and reported right-sided weakness. In the emergency department, the patient underwent a noncontrast CT head which did not show any acute changes, CTA head and neck that did not show hemodynamically significant stenosis or occlusion in the head or neck vasculature. CT of the cervical spine, pelvis did not show any acute fractures. Lab work in the ED showed similar or improved values compared to prior lab values in September 2022. Notably hemoglobin was 8.5, last checked 7.4. [id number] creatinine 2.1, last checked creatinine was 2.5. In the ED, there was concern the patient may have suffered a subacute stroke. Hospital medicine was consulted for admission. The patient was sleeping when I evaluated him in the ED, easily woke up however quickly went back to sleep and did not wish to provide additional information. I attempted to call the patient's daughter, Court Flores, to obtain collateral information at the available contact phone number but had to leave a message. Review of prior hospital records show that the patient's CODE STATUS is DNR/DNI at his request. Review of systems: Unable to obtain due to drowsiness Physical exam Head: Atraumatic, normal inspection. Eyes: normal appearance, no scleral icterus. Neck: full ROM Respiratory: no respiratory distress. Cardiovascular: normal rate and rhythm, S1, S2. GI/Abdominal: soft, nontender, no guarding. Extremities: Bilateral lower extremity 3+ pitting edema, full range of motion, nontender. Neurological: CN II-XII intact, intact motor, intact sensation. Psychiatric: Impaired memory Skin: Bruise on forehead, scattered bruising on extremities. PFSH PFSH All Active Problems (Updated 10/30/22 @ 12:45 by Jose Camarillo DO) Closed subcapital fracture of left femur (Acute) Acute right-sided weakness (Acute) Fall (Acute) Hematoma of frontal scalp (Acute) Hyperkalemia (Acute) Chronic kidney disease (CKD) stage G4/A1, severely decreased glomerular filtration rate (GFR) between 15-29 mL/min/1.73 square meter and albuminuria creatinine ratio less than 30 mg/g (Chronic) Metabolic acidosis (Chronic) Anemia in stage 4 chronic kidney disease (Chronic) Secondary hyperparathyroidism of renal origin (Chronic) Obesity (Chronic) Lumbar back pain (Chronic) Duodenal ulcer (Chronic) Anemia (Chronic) Erectile dysfunction (Chronic) Gout (Chronic) Neoplasm of uncertain behavior of skin (Chronic) Squamous cell skin cancer (Chronic) Dermatitis, eczematoid (Chronic) Moderate to severe aortic stenosis (Chronic) Hypertension (Chronic) Hyperlipidemia (Chronic) BPH (benign prostatic hyperplasia) (Chronic) Hypothyroidism (Chronic) Decreased urination (Chronic) Aortic stenosis (Chronic) Medical History (Updated 10/30/22 @ 12:45 by Jose Camarillo DO) Anemia Aortic stenosis BPH (benign prostatic hyperplasia) Decreased urination Dermatitis, eczematoid Duodenal ulcer Erectile dysfunction Gout Hyperlipidemia Hypertension Hypothyroidism Lumbar back pain Moderate to severe aortic stenosis Neoplasm of uncertain behavior of skin Obesity Secondary hyperparathyroidism of renal origin Squamous cell skin cancer Left forearm-excised 2010 Surgical History No pertinent past surgical history Family History Mother Stroke Father Asthma Brother Alcoholism Diabetes Sister Colon cancer Social History (Updated 10/21/19 @ 13:43 by Prasad Harris MD) marital status: occupational status: retired physical activity: walking and other details: Active frequency: daily smoking status: Former smoker alcohol intake frequency: a few times a month substance use type: does not use seatbelt use: always MEDS/ALLERGIES Home Medications and Allergies Home Medications Medication Instructions Recorded Confirmed Type allopurinol 100 mg tablet 100 mg PO QDAY 09/27/16 09/23/22 History amlodipine 10 mg tablet 10 mg PO QDAY 09/27/16 09/23/22 History levothyroxine 50 mcg tablet 50 mcg PO QAM 09/27/16 09/23/22 History (Synthroid) niacin 250 mg tablet 500 mg PO QHS 10/28/21 09/23/22 History bisacodyl 10 mg rectal suppository 10 mg FL QDAY PRN Constipation 04/29/22 09/23/22 History (Dulcolax (bisacodyl)) chlorthalidone 25 mg tablet 25 mg PO QDAY 04/29/22 09/23/22 History clonidine HCl 0.1 mg tablet 0.1 mg PO QHS PRN antihypertensive 04/29/22 09/23/22 History clopidogrel 75 mg tablet 75 mg PO QDAY 04/29/22 09/23/22 History pantoprazole 40 mg tablet,delayed 40 mg PO QAM 04/29/22 09/23/22 History release polyethylene glycol 3350 17 gram 17 g PO QDAY PRN Constipation 04/29/22 09/23/22 History oral powder packet (Miralax) sodium bicarbonate 650 mg tablet 650 mg PO BID 04/29/22 09/23/22 History sodium zirconium cyclosilicate 10 10 g PO QDAY 04/29/22 09/23/22 History gram oral powder packet terazosin 1 mg capsule 1 mg PO BID 04/29/22 09/23/22 History docusate sodium 100 mg capsule 100 mg PO BID #60 caps 09/10/22 09/23/22 Rx hydrocodone 5 mg-acetaminophen 325 1 - 2 tab PO Q4H PRN Pain #30 tabs 09/10/22 09/23/22 Rx mg tablet acetaminophen 500 mg tablet 500 mg PO Q4HP PRN fever or pain 09/12/22 09/23/22 Rx #30 tabs ferrous sulfate 325 mg (65 mg 325 mg PO QDAY 09/23/22 09/23/22 History iron) tablet methocarbamol 500 mg tablet 500 mg PO TID 09/23/22 09/23/22 History tamsulosin 0.4 mg capsule 0.4 mg PO QDAY 09/23/22 09/23/22 History Allergies Allergy/AdvReac Type Severity Reaction Status Date / Time NSAIDS (Non-Steroidal Allergy Unknown Unknown Verified 10/30/22 09:17 Anti-Inflamma Uvpqsno-HTY-ViZ Reductase Allergy Unknown Unknown Verified 10/30/22 09:17 Inhibitor [Yasqcnp-Qql-Lja Reductase Inhibitor] EXAM Constitutional Vitals: Temp Pulse Resp BP Pulse Ox O2 Del Method 97.4 F 68 12 174/83 98 Room Air 10/30/22 09:08 10/30/22 13:01 10/30/22 13:01 10/30/22 13:01 10/30/22 13:01 10/30/22 09:08 DATA Data Completed and Pending Labs: Labs from last 24 hours 10/30/22 10/30/22 10/30/22 09:17 09:17 09:17 WBC 5.5 RBC 2.80 L Hgb 8.5 L Hct 26.6 L POC Hct MCV 95.0 MCH 30.4 MCHC 32.0 RDW 14.1 Plt Count 215 MPV 9.5 Immature Gran % (Auto) 3.3 H Neut % (Auto) 68.6 Lymph % (Auto) 10.6 L [place] % (Auto) 14.6 H Eos % (Auto) 2.2 Baso % (Auto) 0.7 Lymph # (Auto) 0.58 L [place] # (Auto) 0.80 Eos # (Auto) 0.12 Baso # (Auto) 0.04 Immature Gran # 0.18 H Absolute Neutrophils 3.77 POC VBG pH POC VBG pCO2 at Temp POC VBG pO2 POC VBG HCO3 POC VBG Total CO2 POC Venous O2 Sat POC VBG Base Excess VBG Lactic Acid POC Sodium POC Potassium POC Chloride POC Total CO2 POC Anion Gap POC BUN POC Creatinine POC Glucose POC WB Ioniz Calcium Total Bilirubin 0.4 Direct Bilirubin < 0.2 AST 26 ALT 9 Alkaline Phosphatase 94 Ammonia 20 Total Protein 5.9 Albumin 3.3 Globulin 2.6 10/30/22 10/30/22 09:16 09:16 WBC RBC Hgb Hct POC Hct 24.0 L MCV MCH MCHC RDW Plt Count MPV Immature Gran % (Auto) Neut % (Auto) Lymph % (Auto) [place] % (Auto) Eos % (Auto) Baso % (Auto) Lymph # (Auto) [place] # (Auto) Eos # (Auto) Baso # (Auto) Immature Gran # Absolute Neutrophils POC VBG pH 7.36 POC VBG pCO2 at Temp 31.0 L POC VBG pO2 29 POC VBG HCO3 17.5 L POC VBG Total CO2 18.0 L POC Venous O2 Sat 54.0 POC VBG Base Excess -8.0 L VBG Lactic Acid 0.6 POC Sodium 143 POC Potassium 4.2 POC Chloride 114 H POC Total CO2 19.0 L POC Anion Gap 15.0 POC BUN 48 H POC Creatinine 2.1 H POC Glucose 117 H POC WB Ioniz Calcium 1.18 Total Bilirubin Direct Bilirubin AST ALT Alkaline Phosphatase Ammonia Total Protein Albumin Globulin A/P Narrative A/P Narrative: Assessment: 87 year old male with a history of hypertension, hyperlipidemia, aortic stenosis status post TAVR, chronic kidney disease stage IV, prior stroke, recurrent falls complicated by a left femoral neck fracture in late August admitted for progressively worsening weakness, especially right-sided weakness, and concern for possible stroke may have occurred 3 days ago. #Concern for recent stroke #Volume overload #Encephalopathy, unspecified #Generalized weakness #Chronic kidney disease stage IV #Chronic anemia likely secondary to CKD #History of TAVR for aortic stenosis #History of ischemic stroke #Recurrent falls #Left hip fracture status postrepair September 2022 #BPH #Hypothyroidism Plan -MRI brain to evaluate for possible recent stroke. -Lasix 60 mg IV twice daily, monitor renal function electrolytes and volume status. -UDS to evaluate for recent prescription opioid use that could explain encephalopathy and weakness, especially in the setting of CKD. -Transthoracic echocardiogram. -Home medication reconciliation, continue important medications. -PT, OT and speech therapy. -Bladder scans. -cafeteria monitor. -DVT prophylaxis: Heparin SQ. -CODE STATUS: DNR/DNI. Time Spent With Patient Time: Total time spent is greater than 50% in coordination of care (as documented) at patient's floor/unit and/or counseling patient:
[2022-10-30] MEDS ORDERED: ACETAMINOPHEN 325 MG TABLET PO PRN (14:19)
[2022-10-30] MEDS ORDERED: ONDANSETRON 4 MG/2 ML VIAL IV PRN (14:19)
[2022-10-30 14:23] LABS: Amphetamine Screen,Urine None detected; Barbiturate Screen,Urine None detected; Benzodiazepines Screen,Urine None detected; Cannabinoid Screen,Urine None detected; Cocaine Screen,Urine None detected; Opiate Screen,Urine None detected; Oxycodone, Urine Screen None detected; Phencyclidine Screen,Urine None detected
[2022-10-30] MEDS: HEPARIN 5,000 UNIT/ML VIAL SQ SCH ×2 (15:17→20:25)
[2022-10-30] MEDS: FUROSEMIDE 100 MG/10 ML VIAL IV SCH (15:17)
[2022-10-30] MEDS: 0.9 % SODIUM CHLORIDE 10 ML SYRINGE IV SCH ×2 (15:17→20:25)
[2022-10-30] MEDS: DOCUSATE SODIUM 100 MG CAPSULE PO SCH (20:25)
[2022-10-30] MEDS: SENNOSIDES 1 TABLET PO SCH (20:25)
[2022-10-31] MEDS: 0.9 % SODIUM CHLORIDE 10 ML SYRINGE IV SCH ×3 (05:43→22:37)
[2022-10-31] MEDS: HEPARIN 5,000 UNIT/ML VIAL SQ SCH ×3 (05:43→21:52)
[2022-10-31 07:06] LABS: Basophils # (Auto) 0.04 K/mcL (0.00-0.30); Basophils % (Auto) 0.7 % (0.0-2.0); Eosinophils # (Auto) 0.24 K/mcL (0.00-0.70); Hematocrit 30.4 % (40.1-51.0); Hemoglobin 9.3 g/dL (13.7-17.5); Lymphocytes # (Auto) 0.71 K/mcL (1.50-4.80); Lymphocytes % (Auto) 11.9 % (15.5-49.0); Mean Cell Volume 97.1 fL (80.0-100.0); Mean Corpuscular HGB Conc 30.6 g/dL (31.0-36.0); Mean Platelet Volume 9.8 fL (8.8-12.5); Monocytes # (Auto) 0.81 K/mcL (0.10-0.90); Monocytes % (Auto) 13.6 % (1.0-12.0); Neutrophils % (Auto) 67.8 % (38.0-78.0); Platelet Count 214 K/mcL (140-440); RBC 3.13 M/mcL (4.63-6.08); Red Cell Distribution Width 14.2 % (11.5-14.5)
[2022-10-31 07:28] LABS: Albumin 3.5 gm/dL (3.2-5.2); Blood Urea Nitrogen 49 mg/dL (8-23); Calcium 8.7 mg/dL (8.6-10.4); Carbon Dioxide 20 mmol/L (22-30); Chloride 110 mmol/L (96-108); Glomerular Filtration Rate 30; Glucose 93 mg/dL (70-105); Phosphorous 3.5 mg/dL (2.5-4.5)
--- NOTE | 2022-10-31 08:44 | Magnetic Resonance Report ---
CLINICAL INFORMATION: Possible stroke COMPARISON: Head CT 24/09/2022. An Brain MRI 02/28/2022 TECHNIQUE: Sagittal T1 FLAIR, T2 FLAIR, diffusion ADC images were obtained through the brain. FINDINGS: The ventricles, sulci, fissures and cisterns are symmetrically enlarged compatible with mild age-related atrophy. No change. No extra-axial fluid collections or mass appreciated. A moderate remote cortical-based infarct in the parafalcine posterior right frontal lobe vertex is again seen.. Scattered chronic senescent ischemic changes throughout the the cerebral white matter are unchanged. No regions of restricted diffusion to suggest an acute CVA. There is no hemorrhage, mass effect, edema or other acute findings. The left maxillary sinus is completely opacified chronically IMPRESSION: 1. No evidence of acute CVA or other acute intracerebral abnormality. 2. Moderate remote cortical-based infarct in the parafalcine posterior right frontal lobe demonstrates long-term stability 3. Mild age-related atrophy and chronic senescent ischemic changes in the cerebral white matter expected for age and stable. 4. Severe chronic left maxillary sinusitis Interpreted and Authenticated by: Aaron Reed 10/31/22
[2022-10-31] MEDS: DOCUSATE SODIUM 100 MG CAPSULE PO SCH ×2 (09:03→21:54)
[2022-10-31] MEDS: FUROSEMIDE 100 MG/10 ML VIAL IV SCH ×2 (09:03→15:56)
[2022-10-31] MEDS ORDERED: POTASSIUM CHLORIDE 20 MEQ TABLET PO ONE (09:27)
--- NOTE | 2022-10-31 10:31 | Internal Med Progress Note ---
SUBJECTIVE Subjective Patient information: Note initiated : 10/31/22 at 10:28 am Service Date, if different from initiated Date: [] Patient: Mina Schmidt 87 y/o M admitted on 10/30/22. Chief Complaint: [] Interval history: Mr. Schmidt is a 87 year old Male with a history of hypertension, hyperlipidemia, aortic stenosis status post TAVR, chronic kidney disease stage IV, prior stroke, recurrent falls complicated by a left femoral neck fracture in late August corrected surgically approximately 2 weeks later at [facility] who now presents to the emergency department after a fall at home and progressively increasing weakness over the last few days and reported right-sided weakness. In the emergency department, the patient underwent a noncontrast CT head which did not show any acute changes, CTA head and neck that did not show hemodynamically significant stenosis or occlusion in the head or neck vasculature. CT of the cervical spine, pelvis did not show any acute fractures. Lab work in the ED showed similar or improved values compared to prior lab values in September 2022. Notably hemoglobin was 8.5, last checked 7.4. [id number] creatinine 2.1, last checked creatinine was 2.5. In the ED, there was concern the patient may have suffered a subacute stroke. Hospital medicine was consulted for admission. The patient was sleeping when I evaluated him in the ED, easily woke up however quickly went back to sleep and did not wish to provide additional information. I attempted to call the patient's daughter, Court Flores, to obtain collateral information at the available contact phone number but had to leave a message. Review of prior hospital records show that the patient's CODE STATUS is DNR/DNI at his request. 10/31 Blood pressure was moderately elevated overnight, vitals otherwise unremarkable. Patient reportedly more interactive with staff today however was quite sleepy when I evaluated him this morning. UDS was negative. MRI brain did not show any evidence of acute stroke, there was a moderate remote cortical-based infarct in the parafalcine posterior right frontal lobe. Continues on Lasix IV for diuresis, renal function stable. TTE showed LVEF 60 to 65%, moderate concentric left ventricular hypertrophy, unable to accurately assess left ventricular diastolic function due to abnormal rhythm, right ventricle size was normal, normal RV systolic function bioprosthetic aortic valve with mild aortic insufficiency, otherwise no significant abnormalities. Added Norvasc for elevated blood pressures, Flomax for history of BPH. Holding most home medications pending medication reconciliation. Physical exam Head: Atraumatic, normal inspection. Eyes: normal appearance, no scleral icterus. Neck: full ROM Respiratory: no respiratory distress. Cardiovascular: normal rate and rhythm, S1, S2. GI/Abdominal: soft, nontender, no guarding. Extremities: Bilateral lower extremity 3+ pitting edema, full range of motion, nontender. Neurological: CN II-XII intact, intact motor, intact sensation. Psychiatric: Impaired memory Skin: Bruise on forehead, scattered bruising on extremities. Constitutional Vitals: Vital Signs Temp Pulse Resp BP Pulse Ox O2 Del Method 98.8 F 60 14 163/44 97 Room Air 10/31/22 08:00 10/31/22 08:00 10/31/22 08:00 10/31/22 08:00 10/31/22 08:00 10/31/22 08:00 Period Temp Pulse Resp BP Sys/[place] Pulse Ox O2 Del Method O2 Flow Rate Last 24 Hr 97.4 F-98.8 F 56-76 11-18 144-188/42-107 97-100 Room Air-Room Air Intake and Output 10/30/22 10/31/22 10/31/22 19:59 03:59 11:59 Intake Total 720 600 340 Output Total 552 5 2 Balance 168 595 338 Weight 83.552 kg Intake & Output: Intake & Output 10/30/22 10/31/22 10/31/22 19:59 03:59 11:59 Intake Total 720 600 340 Output Total 552 5 2 Balance 168 595 338 Weight 83.552 kg Intake: IV 500 Sodium Chloride 0.9% 500 ml @ 500 Wide Open IV BOLUS ONE Rx#: [id number] Oral 120 600 340 GI Tube Flush 100 Output: Void Amount 550 Straight 550 # of times incontinent of urine 2 5 2 Other: Meal Dinner Breakfast Percent of Meal Consumed 100% 50% Feeding Ability Independent Assist with Tray Set Up Urine Appearance Straight Clear Urine Color Yellow Straight Yellow Stool Size Small Stool Color Brown Stool Consistency Liquid # Voids 1 1 # Bowel Movements 2 OBJ DATA Labs 10/31/22 06:08 10/31/22 06:08 Labs: Abnormal Lab Results 10/31/22 10/31/22 10/30/22 06:08 06:08 09:17 RBC 3.13 L 2.80 L Hgb 9.3 L 8.5 L Hct 30.4 L 26.6 L POC Hct MCHC 30.6 L Immature Gran % (Auto) 2.0 H 3.3 H Lymph % (Auto) 11.9 L 10.6 L [place] % (Auto) 13.6 H 14.6 H Lymph # (Auto) 0.71 L 0.58 L Immature Gran # 0.12 H 0.18 H POC VBG pCO2 at Temp POC VBG HCO3 POC VBG Total CO2 POC VBG Base Excess POC Chloride Chloride 110 H Carbon Dioxide 20 L POC Total CO2 POC BUN BUN 49 H Creatinine 1.9 H POC Creatinine POC Glucose 10/30/22 10/30/22 09:16 09:16 RBC Hgb Hct POC Hct 24.0 L MCHC Immature Gran % (Auto) Lymph % (Auto) [place] % (Auto) Lymph # (Auto) Immature Gran # POC VBG pCO2 at Temp 31.0 L POC VBG HCO3 17.5 L POC VBG Total CO2 18.0 L POC VBG Base Excess -8.0 L POC Chloride 114 H Chloride Carbon Dioxide POC Total CO2 19.0 L POC BUN 48 H BUN Creatinine POC Creatinine 2.1 H POC Glucose 117 H Meds: Medications Acetaminophen (Acetaminophen 325 Mg Tablet) 650 mg PO Q6HP PRN; Protocol PRN Reason: Per Pain Protocol/Fever > 101 Docusate Sodium (Docusate Sodium 100 Mg Capsule) 100 mg PO BID [facility] Last Admin: 10/31/22 09:03 Dose: 100 mg Furosemide (Furosemide 100 Mg/10 Ml Vial) 60 mg IV BIDD [facility] Last Admin: 10/31/22 09:03 Dose: 60 mg Heparin Sodium (Porcine) (Heparin 5,000 Unit/Ml Vial) 5,000 unit SQ Q8 [facility] Last Admin: 10/31/22 05:43 Dose: 5,000 unit Ondansetron HCl (Ondansetron 4 Mg/2 Ml Vial) 4 mg IV Q6HP PRN PRN Reason: Nausea And Vomiting Senna (Sennosides 1 Tablet) 2 tab PO HS [facility] Last Admin: 10/30/22 20:25 Dose: 2 tab Sodium Chloride (0.9 % Sodium Chloride 10 Ml Syringe) 10 ml IV Q8 [facility] Last Admin: 10/31/22 05:43 Dose: 10 ml Tamsulosin HCl (Tamsulosin 0.4 Mg Capsule) 0.4 mg PO HS [facility] A/P Narrative A/P Narrative: Assessment: 87 year old male with a history of hypertension, hyperlipidemia, aortic stenosis status post TAVR, chronic kidney disease stage IV, prior stroke, recurrent falls complicated by a left femoral neck fracture in late August admitted for progressively worsening weakness, especially right-sided weakness, and concern for possible stroke may have occurred 3 days ago. MRI brain did not show an acute stroke. #Volume overload likely secondary to acute on chronic diastolic heart failure #Encephalopathy, unspecified #Generalized weakness #Chronic kidney disease stage IV #Chronic anemia likely secondary to CKD #History of TAVR for aortic stenosis #History of ischemic stroke #Recurrent falls #Left hip fracture status postrepair September 2022 #BPH #Hypothyroidism Plan -Lasix 60 mg IV twice daily, monitor renal function electrolytes and volume status, potassium supplementation as needed. -Transthoracic echocardiogram showed normal LVEF, normal RV size and function, no significant issues with TAVR, no significant valvulopathy. -Start Norvasc 10 mg daily. -Start Flomax 0.4 mg daily. -Awaiting home medication reconciliation. -PT, OT and speech therapy. -Bladder scans. -lunchroom monitor while receiving IV Lasix. -DVT prophylaxis: Heparin SQ. -CODE STATUS: DNR/DNI. Time Spent With Patient Time: Total time spent is greater than 50% in coordination of care (as documented) at patient's floor/unit and/or counseling patient: QUALITY VTE Deep Vein Thrombosis/Pulmonary Embolism Present on Admission: No
[2022-10-31] MEDS ORDERED: amLODIPine 10 MG TABLET PO SCH (10:35)
[2022-10-31 14:44] LABS: Creatinine, Spot Urine 68.3 mg/dL (39.0-259.0); Pro:Crea Ratio 1.6 (<0.20)
[2022-10-31] MEDS ORDERED: TAMSULOSIN 0.4 MG CAPSULE PO SCH (21:00)
[2022-10-31] MEDS: SENNOSIDES 1 TABLET PO SCH (21:54)
[2022-11-01] MEDS: HEPARIN 5,000 UNIT/ML VIAL SQ SCH ×2 (06:12→14:40)
[2022-11-01] MEDS: 0.9 % SODIUM CHLORIDE 10 ML SYRINGE IV SCH ×2 (06:12→14:40)
[2022-11-01 07:02] LABS: Basophils # (Auto) 0.03 K/mcL (0.00-0.30); Basophils % (Auto) 0.6 % (0.0-2.0); Eosinophils # (Auto) 0.37 K/mcL (0.00-0.70); Eosinophils % (Auto) 6.8 % (0.0-7.0); Hematocrit 27.7 % (40.1-51.0); Hemoglobin 8.8 g/dL (13.7-17.5); Lymphocytes # (Auto) 0.71 K/mcL (1.50-4.80); Mean Cell Volume 94.5 fL (80.0-100.0); Mean Corpuscular HGB Conc 31.8 g/dL (31.0-36.0); Mean Platelet Volume 9.8 fL (8.8-12.5); Monocytes # (Auto) 0.75 K/mcL (0.10-0.90); Monocytes % (Auto) 13.8 % (1.0-12.0); Neutrophils % (Auto) 61.4 % (38.0-78.0); Platelet Count 215 K/mcL (140-440); RBC 2.93 M/mcL (4.63-6.08); WBC 5.5 K/mcL (4.5-11.0)
[2022-11-01] MEDS ORDERED: LEVOTHYROXINE 50 MCG TABLET PO SCH (07:30)
[2022-11-01 07:56] LABS: Albumin 3.2 gm/dL (3.2-5.2); Blood Urea Nitrogen 48 mg/dL (8-23); Calcium 8.3 mg/dL (8.6-10.4); Carbon Dioxide 22 mmol/L (22-30); Chloride 108 mmol/L (96-108); Glomerular Filtration Rate 30; Glucose 97 mg/dL (70-105); Phosphorous 3.3 mg/dL (2.5-4.5)
[2022-11-01] MEDS: FUROSEMIDE 100 MG/10 ML VIAL IV SCH ×2 (08:51→16:36)
[2022-11-01] MEDS: DOCUSATE SODIUM 100 MG CAPSULE PO SCH (08:51)
[2022-11-01] MEDS ORDERED: amLODIPine 10 MG TABLET PO SCH (09:00)
[2022-11-01] MEDS ORDERED: TERAZOSIN 1 MG CAPSULE PO SCH (09:00)
[2022-11-01] MEDS ORDERED: TAMSULOSIN 0.4 MG CAPSULE PO SCH (09:00)
[2022-11-01] MEDS ORDERED: ALLOPURINOL 100 MG TABLET PO SCH (09:00)
[2022-11-01] MEDS ORDERED: CALCIUM W/VIT D3 500 MG TABLET PO SCH (09:00)
--- NOTE | 2022-11-01 10:56 | Discharge Summary ---
Discharge Provider Provider IMPORTANT FOLLOW-UP INFORMATION FOR PCP: Patient information: Note initiated : 11/01/22 at 10:52 am Service Date, if different from initiated Date: [] Patient: Mina Schmidt 87 y/o M admitted on 10/31/22. Chief Complaint: [] Date of admission: 10/31/22 10:31 Discharge date: 11/01/22 Primary care physician: Aaron Nickerson DO Consults: 10/30/22 Consult to Physician [CONS] Stat Comment: Consulting Provider: Jose Nelson Reason For Exam: Physician to Consult COURSE Hospital Course Hospital course: Mr. Schmidt is a 87 year old Male with a history of hypertension, hyperlipidemia, aortic stenosis status post TAVR, chronic kidney disease stage IV, prior stroke, recurrent falls complicated by a left femoral neck fracture in late August corrected surgically approximately 2 weeks later at [facility] who now presents to the emergency department after a fall at home and progressively increasing weakness over the last few days and reported right-sided weakness. In the emergency department, the patient underwent a noncontrast CT head which did not show any acute changes, CTA head and neck that did not show hemodynamically significant stenosis or occlusion in the head or neck vasculature. CT of the cervical spine, pelvis did not show any acute fractures. Lab work in the ED showed similar or improved values compared to pr ior lab values in September 2022. Notably hemoglobin was 8.5, last checked 7.4. Mgaxn-tj-rnka creatinine 2.1, last checked creatinine was 2.5. In the ED, there was concern the patient may have suffered a subacute stroke. Hospital medicine was consulted for admission. The patient was sleeping when I evaluated him in the ED, easily woke up however quickly went back to sleep and did not wish to provide additional information. I attempted to call the patient's daughter, Court Flores, to obtain collateral information at the available contact phone number but had to leave a message. Review of prior hospital records show that the patient's CODE STATUS is DNR/DNI at his request. 10/31 Blood pressure was moderately elevated overnight, vitals otherwise unremarkable. Patient reportedly more interactive with staff today however was quite sleepy when I evaluated him this morning. UDS was negative. MRI brain did not show any evidence of acute stroke, there was a moderate remote cortical-based infarct in the parafalcine posterior right frontal lobe. Continues on Lasix IV for diuresis, renal function stable. TTE showed LVEF 60 to 65%, moderate concentric left ventricular hypertrophy, unable to accurately assess left ventricular diastolic function due to abnormal rhythm, right ventricle size was normal, normal RV systolic function bioprosthetic aortic valve with mild aortic insufficiency, otherwise no significant abnormalities.Resumed home Norvasc and Flomax. 11/01 Vital stable overnight, the patient's mental status has been improved and he is likely now near his baseline. Volume status has improved significantly. The patient will be able to discharge home with home health. At discharge, I did continue the patient on Lasix with Lasix 40 mg twice daily. The patient will follow-up with his primary care provider. I recommend checking a basic metabolic panel to assess the patient's renal function, electrolytes and assess volume status. Physical exam Head: Atraumatic, normal inspection. Eyes: normal appearance, no scleral icterus. Neck: full ROM Respiratory: no respiratory distress. Cardiovascular: normal rate and rhythm, S1, S2. GI/Abdominal: soft, nontender, no guarding. Extremities: Notably improved bilateral lower extremity edema, now +1. Neurological: CN II-XII intact, intact motor, intact sensation. Psychiatric: Impaired memory Skin: Bruise on forehead, scattered bruising on extremities. Discharge diagnosis: Acute on chronic diastolic heart failure Secondary discharge diagnosis: Resolved encephalopathy Chronic kidney disease stage IV Chronic anemia likely secondary to CKD Generalized weakness History of ischemic stroke Time Spent with Patient Time attestation: Total time spent providing and/or coordinating discharge services: Time spent: Greater than 30 minutes EXAM Constitutional Vitals: Temp Pulse Resp BP Pulse Ox O2 Del Method 97.7 F 68 14 138/64 96 Room Air 11/01/22 08:00 11/01/22 08:00 11/01/22 08:00 11/01/22 08:00 11/01/22 08:00 11/01/22 08:00 Discharge Data Data Completed and Pending Labs on day of discharge: Labs from last 24 hours 11/01/22 11/01/22 10/30/22 05:26 05:26 13:35 WBC 5.5 RBC 2.93 L Hgb 8.8 L Hct 27.7 L MCV 94.5 MCH 30.0 MCHC 31.8 RDW 14.0 Plt Count 215 MPV 9.8 Immature Gran % (Auto) 4.4 H Neut % (Auto) 61.4 Lymph % (Auto) 13.0 L [place] % (Auto) 13.8 H Eos % (Auto) 6.8 Baso % (Auto) 0.6 Lymph # (Auto) 0.71 L [place] # (Auto) 0.75 Eos # (Auto) 0.37 Baso # (Auto) 0.03 Immature Gran # 0.24 H Absolute Neutrophils 3.35 Sodium 141 Potassium 3.9 Chloride 108 Carbon Dioxide 22 Anion Gap 11.0 BUN 48 H Creatinine 1.9 H GFR Calculation 30 Glucose 97 Calcium 8.3 L Phosphorus 3.3 Albumin 3.2 Ur Random Creatinine 68.3 U Random Total Protein 109 U [place] Prot/Creat Ratio 1.60 H Discharge Plan Patient/Caregiver Discharge Instructions Activity: increase activity as tolerated Diet: Low Sodium (2gm) Prescriptions: New furosemide [Lasix] 40 mg tablet 40 mg PO BID Qty: 60 6RF Continued levothyroxine [Synthroid] 50 mcg tablet 50 mcg PO QAM amlodipine 10 mg tablet 10 mg PO QDAY niacin 250 mg tablet 500 mg PO QHS terazosin 1 mg capsule 1 mg PO BID sodium zirconium cyclosilicate 10 gram powder in packet 10 g PO QDAY docusate sodium 100 mg capsule 100 mg PO BID Qty: 60 0RF tamsulosin 0.4 mg Capsule 0.4 mg PO QDAY Alive Calcium-Vitamin D3 25 mcg PO QDAY allopurinol 100 mg PO QDAY Discontinued hydrocodone-acetaminophen 5-325 mg tablet 1 - 2 tab PO Q4H PRN (Reason: Pain) Qty: 30 0RF Follow Up Plan Follow up with: Aaron Nickerson DO [Primary Care Provider] - Patient Disposition: Home Health Service Prognosis: Fair Overall status at discharge: patient is progressing back to baseline Discharge Orders: Discharge Order (Routine); Ordered 11/01/22 Ordered By: Jose GREENE VTE Deep Vein Thrombosis/Pulmonary Embolism Present on Admission: No
[2022-11-01] MEDS ORDERED: NIACIN 250 MG CAP.SR.12H PO SCH (21:00)
--- NOTE | 2022-11-06 07:30 | EKG ---
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
== END 2022-11-01 16:32 | disposition home health service (06) | DRG 291 ==
LOC: MEDSUR 09:07 → ED 09:07 → MEDSUR 14:22
PROVIDERS: ADMIT Internal Medicine; ATTEND Internal Medicine